=== PATIENT | female | born 1950 | race Caucasian/White ===

== ENCOUNTER 2016-10-26 07:50 | Observation (INO) | payer MEDICARE, OTHER ==
[~2016-10-26 07:50] MED LIST: Buffered Lidocaine 1% SYR 3ML* 3 ML/SYR SYRINGE INTRADERM ONE; Famotidine IV* 10 MG/ML 2 ML (20 mg) IV ONE; Morphine INJ* 2 MG/ML 1 ML CARPUJECT IV PRN; PROCHLORPERAZINE INJ 5 MG/ML 2 ML VIAL IV PRN
[2016-10-26] MEDS ORDERED: Famotidine IV* 10 MG/ML 2 ML (20 mg) ONE (08:26)
[2016-10-26] MEDS ORDERED: ceFAZolin 2 GM PREMIX (*) 2 GM/50 ML BAG IVPB ONE (08:26)
[2016-10-26] MEDS ORDERED: Buffered Lidocaine 1% SYR 3ML* 3 ML/SYR SYRINGE ONE (08:26)
[2016-10-26] MEDS ORDERED: Atracurium* 10 MG/ML 10 ML VIAL ONE (08:38)
[2016-10-26] MEDS ORDERED: fentaNYL* 50 MCG/ML 2 ML VIAL (100 MCG VIAL) ONE ×3 (08:38→12:47)
[2016-10-26] MEDS ORDERED: Midazolam* 1 MG/ML 5 ML VIAL (5 MG) ONE (08:39)
[2016-10-26] MEDS ORDERED: KETAMINE HCL* 50 MG/ML 10 ML VIAL ONE (08:39)
[2016-10-26] MEDS ORDERED: Lidocain 1% EPI 1:100,000 * 30 ML MDV ONE (09:03)
[2016-10-26] MEDS ORDERED: Bacitracin IV* 50,000 UNITS INJ ONE (09:03)
[2016-10-26] MEDS ORDERED: Thrombin 5,000 UNITS* 1 APPLIC KIT - topical use - TOPICAL ONE (09:03)
[2016-10-26] MEDS ORDERED: Morphine INJ* 10 MG/ML 1 ML CARPUJECT ONE (09:36)
[2016-10-26] MEDS ORDERED: Dexamethasone IV* 4 MG/ML 1 ML (4 MG) ONE (10:33)
[2016-10-26] MEDS ORDERED: Ondansetron INJ* 2 MG/ML VIAL ONE (10:33)
[2016-10-26] MEDS ORDERED: Phenylephrine IV* 40 MCG/ML 10 ML SYRINGE ONE (10:33)
[2016-10-26] MEDS ORDERED: Propofol* 10 MG/ML 20 ML BTL IV PUSH ONE (10:33)
[2016-10-26] MEDS ORDERED: Glycopyrrolate IV* 0.2 MG/ML 1 ML VIAL ONE (10:33)
[2016-10-26] MEDS ORDERED: Metoprolol Tartrate IV* 1 MG/ML 5 ML VIAL ONE (10:35)
[2016-10-26] MEDS ORDERED: Acetaminophen TAB* 325 MG PO PRN (10:36)
[2016-10-26] MEDS ORDERED: Ondansetron INJ* 2 MG/ML VIAL IV PRN (10:36)
[2016-10-26] MEDS ORDERED: Magnesium Hydroxide LIQ* 30 ML UDC PO PRN (10:36)
[2016-10-26] MEDS ORDERED: SINGULAIR PO PRN (10:40)
[2016-10-26] MEDS: fentaNYL* 50 MCG/ML 2 ML VIAL (100 MCG VIAL) IV PRN ×5 (11:16→12:49)
--- NOTE | 2016-10-26 11:39 | RAD ---
HISTORY: Decompressive lumbar laminectomy COMPARISONS: March 30, 2016 VIEWS: 1 , portable crosstable lateral intraoperative view of the lumbar spine for localization during spinal surgery FINDINGS: A single portable examination labeled 10:10 AM demonstrates a metallic forceps opposite of L4-L5, counting from L5 as the last lumbar type vertebral body. IMPRESSION: LIMITED PORTABLE VIEW OF THE SPINE FOR LOCALIZATION DURING SPINAL SURGERY
[2016-10-26] MEDS ORDERED: oxyCODONE/Acetamin 5/325 MG* TAB ONE ×2 (11:43→12:47)
[2016-10-26] MEDS: oxyCODONE/Acetamin 5/325 MG* TAB PO PRN ×2 (11:54→12:50)
[2016-10-26] MEDS: HYDROcodone/ACETAMIN 5-325 MG* 1 TAB PO PRN ×2 (16:25→20:27)
[2016-10-26] MEDS ORDERED: Ropinirole TAB* 0.5 MG TAB PO SCH (20:00)
[2016-10-26] MEDS: Carvedilol TAB* 25 MG PO SCH (20:26)
[2016-10-27] MEDS: HYDROcodone/ACETAMIN 5-325 MG* 1 TAB PO PRN ×3 (01:07→09:06)
[2016-10-27] MEDS ORDERED: Levothyroxine TAB* 100 MCG TAB PO SCH (06:00)
--- NOTE | 2016-10-27 07:57 | PN ---
Progress Note - Progress Note SOAP: Subjective: [This is a 66 year old patient s/p decompressive lumbar laminectomy L4-5 and L5- S1 POD #1. She is feeling well this morning. She complains of only mild pain at the incision site. Pre-operative symptoms improving. She is ambulating independently. She is eating, drinking and voiding without difficulty. No headache.] Objective: [ Vital Signs: Temp Pulse Resp BP Pulse Ox 98.2 F 68 16 102/54 95 10/27/16 03:33 10/27/16 03:33 10/27/16 05:38 10/27/16 04:15 10/27/16 03:33 General: Alert and oriented. Neuro: Motor and sensory intact. Incision: Intact with nellie. No swelling or signs of infection. SANTANA drain partially pulled out accidentally and therefore removed completely. Extremities: Full ROM] Assessment: [This patient is following a satisfactory post-operative course at this time. Pain is well controlled with oral pain medications. ] Plan: [1. Discharge home today. 2. Discharge instructions including wound care and activity level were discussed with the patient. ]
[2016-10-27 08:01] VITALS: BP 111/54
[2016-10-27] MEDS ORDERED: Cholecalciferol TAB* 1000 UNITS PO SCH (09:00)
[2016-10-27] MEDS ORDERED: Hydrochlorothiazide TAB* 25 MG PO SCH (09:00)
[2016-10-27] MEDS ORDERED: Sertraline* 50 MG TAB PO SCH (09:00)
[2016-10-27] MEDS ORDERED: Famotidine TAB* 20 MG PO SCH (09:00)
[2016-10-27] MEDS: Carvedilol TAB* 25 MG PO SCH (09:08)
--- NOTE | 2016-10-27 10:04 | OP ---
DATE OF OPERATION: 10/26/16 - ROOM #338 DATE OF : 52 SURGEON: Edgardo Samuel MD. CONTROL SUPERVISOR: BEE Cavazos. ANESTHESIOLOGIST: Dr. Moore. ANESTHESIA: General. PRE-OP DIAGNOSIS: Lumbar spinal stenosis, L4-5, L5-S1. POST-OP DIAGNOSIS: Lumbar spinal stenosis, L4-5, L5-S1; synovial cyst L4-5 on the left. OPERATIVE PROCEDURE: Decompressive lumbar laminectomy, L4-5, L5-S1 with excision of synovial cyst, L4-5, on the left. DESCRIPTION OF PROCEDURE: After satisfactory general anesthesia was obtained, the patient was placed on the operating table in the prone position with the chest supported on the Dimitris frame and the back slightly flexed. The lumbar region was then clipped, prepped, and draped in a sterile manner for lumbar laminectomy and a skin incision outlined from L4 to the sacrum. This incision was infiltrated with 1% Xylocaine with epinephrine, after which it was turned down sharply to the level of the lumbar fascia. The fascia was divided along the spinous processes from L4 to the sacrum and the paraspinal musculature stripped away from these posterior elements utilizing the periosteal elevator and monopolar cautery. An intraoperative x-ray was obtained verifying proper insufflation of localization after which a decompression was initially carried out by removing the spinous processes of L4-L5 and the upper portion of S1 with a combination of the Jarrell ribber and Leksell rongeurs. A Midas-Gilbert drill was then used to thin out the remaining portion of the base of the spinous process of L4 and the medial facet complex at the L4-5 level. A decompression was then carried out with Kerrison. This was carried superiorly until the attachment of the ligamentum flavum was taken down. A generous decompression was carried out initially on the right side until the L5 nerve root was noted to be free in its course. On the left side, there was noted to be adherent tissue between the facet complex and the dura. With additional dissection, it could be seen that this represented synovial cyst with marked compression on the left side of the left L5 nerve root. Utilizing sharp and blunt dissection, this was dissected free from the nerve root and removed with the Kerrison. At the conclusion of the decompression, a nerve hook out readily with both the L5 nerve roots. Attention was then directed to the L5-S1 level where a similar decompression was carried out. The pathology at this level was not as severe as L4-5, but there was foraminal stenosis especially on the left side from a combination of thickened ligament and bony hypertrophy. At the conclusion of the decompression, the wound was thoroughly irrigated, after which Gelfoam was placed over the laminectomy defects. A drain was placed in the epidural space and tunneled out toward the left side. The fascia was then reapproximated with 0 Vicryl suture. The subcutaneous tissue was closed with 3-0 Vicryl suture and the skin closed with skin clips. The estimated blood loss was 100 cc and the final sponge, padding, and needle counts were correct. The patient was taken to the recovery room, extubated, and in stable condition. [id number]/CPS #: [id number] PATRICIA
--- NOTE | 2016-10-27 23:15 | DS ---
DISCHARGE SUMMARY: DATE OF ADMISSION: 10/26/16 DATE OF DISCHARGE: 10/27/16 DISCHARGE DIAGNOSES: 1. Lumbar spinal stenosis. 2. Obstructive sleep apnea. 3. Hypothyroidism. 4. Hypertension. 5. Gastroesophageal reflux disease. 6. Hypercholesterolemia. SPECIAL PROCEDURES: Decompressive lumbar laminectomy at L4-L5 and L5-S1. HOSPITAL COURSE: This 66-year-old female was seen in the office with significant signs and symptoms of lumbar spinal stenosis. She failed to improve over several months of conservative treatment and was admitted at this time for elective surgical intervention. On the day of admission, she was taken to surgery where under general anesthesia, a decompressive lumbar laminectomy at L4-L5 and L5-S1 operation was carried out. Postoperatively, she was feeling well and pain was well controlled with oral pain medication. She was ambulating independently. She was eating, drinking, and voiding without difficulty. Preoperative pain was improving. On the first postoperative day, she was discharged home to the care of her family. Discharge instructions including wound care and activity level were discussed with the patient and provided. She will be seen in office in approximately 7-10 days for followup and staple removal. DISCHARGE MEDICATIONS: Roslyn 5/325 mg 2 tablets every 4 hours as needed for pain. BEE BOYD [id number]/[facility] #: [id number] PATRICIA
== END 2016-10-27 09:15 | disposition home or self-care (01) ==
LOC: OR 07:50 → SSU 10:36
PROVIDERS: ADMIT Neurological Surgery; ATTEND Neurological Surgery
PROC: 01NB0ZZ Release Lumbar Nerve, Open Approach (ICD-10-PCS; 2016-10-26)
PROC: 0SB20ZZ Excision of Lumbar Vertebral Disc, Open Approach (ICD-10-PCS; principal; 2016-10-26 09:30)
DX: M48.06 Spinal stenosis, lumbar region (principal); M48.07 Spinal stenosis, lumbosacral region; I10 Essential (primary) hypertension; E78.00 Pure hypercholesterolemia, unspecified; K21.9 Gastro-esophageal reflux disease without esophagitis; G47.33 Obstructive sleep apnea (adult) (pediatric); E03.9 Hypothyroidism, unspecified; Z79.899 Other long term (current) drug therapy
CPT/HCPCS: 72100; 96374; A9270-GY; G0378; J0690; J1100; J2250; J2270; J2405; J2704; J3010; J3490

== ENCOUNTER 2017-05-28 10:39 | Emergency (ER) | payer MEDICARE, OTHER ==
[2017-05-28 11:42] VITALS: BP 113/58
--- NOTE | 2017-05-28 12:04 | UC ---
Respiratory Complaint HPI - HPI Summary HPI Summary: 66 yo female with cough/sinus pressure and pain as well as nasal congestion x 8 days no f/c no CP or SOB - History of Current Complaint Chief Complaint: UCRespiratory Stated Complaint: COUGH/CONGESTION/HEADACHE Time Seen by Provider: 05/28/17 11:55 Hx Obtained From: Patient Onset/Duration: Gradual Onset Timing: Constant Severity Initially: Mild Severity Currently: Moderate Pain Intensity: 4 Pain Scale Used: 0-10 Numeric Character: Cough: Nonproductive Aggravating Factors: Nothing Alleviating Factors: Nothing Associated Signs And Symptoms: Positive: Nasal Congestion, Sinus Discomfort - Allergies/Home Medications Allergies/Adverse Reactions: Allergies Allergy/AdvReac Type Severity Reaction Status Date / Time No Known Allergies Allergy Verified 05/28/17 11:34 PMH/Surg Hx/FS Hx/Imm Hx Previously Healthy: Yes Endocrine History: Hypothyroidism Cardiovascular History: Hypertension Respiratory History: Bronchitis, Pneumonia - Surgical History Surgical History: Yes Surgery Procedure, Year, and Place: Cholecystectomy 2005 [facility] [place]. Breast reduction Bilateral 1998 [place]. Partial Hysterectomy 1979 [place] - Family History Known Family History: Positive: Hypertension - Social History Alcohol Use: Rare Substance Use Type: None Smoking Status (MU): Never Smoked Tobacco - Immunization History Most Recent Influenza Vaccination: 2016 Most Recent Tetanus Shot: unknown Most Recent Pneumonia Vaccination: in recent past Review of Systems Constitutional: Fatigue Skin: Negative Eyes: Negative ENT: Nasal Discharge, Sinus Congestion, Sinus Pain/Tenderness Respiratory: Cough Cardiovascular: Negative Gastrointestinal: Negative Genitourinary: Negative Motor: Negative Neurovascular: Negative Musculoskeletal: Negative Neurological: Negative Psychological: Negative All Other Systems Reviewed And Are Negative: Yes Physical Exam Triage Information Reviewed: Yes Appearance: Well-Appearing, No Pain Distress, Well-Nourished Vital Signs: Initial Vital Signs Temp 97.2 F 05/28/17 11:35 Pulse 74 05/28/17 11:35 Resp 18 05/28/17 11:35 BP 113/58 05/28/17 11:35 Pulse Ox 97 05/28/17 11:35 Vital Signs Reviewed: Yes Eyes: Positive: Conjunctiva Clear ENT: Positive: Hearing grossly normal, Nasal congestion, Nasal drainage, TMs normal, Other: - bilat mas sinus tenderness. Negative: Tonsillar exudate, Trismus, Muffled/hoarse voice Dental: Positive: Other: - upper plate. Negative: Abscess @ Neck: Positive: Supple, Nontender, No Lymphadenopathy Respiratory: Positive: Normal breath sounds, No respiratory distress, No accessory muscle use, Rhonchi - with forced expiration onluy Cardiovascular: Positive: RRR, No Murmur Musculoskeletal: Positive: ROM Intact, No Edema Neurological: Positive: Alert Psychological Exam: Normal Skin Exam: Normal UC Diagnostic Evaluation - Laboratory O2 Sat by Pulse Oximetry: 97 - normal/not hypoxic Respiratory Course/Dx - Differential Dx/Diagnosis Provider Diagnoses: acute sinusitis/acute bronchitis Discharge - Discharge Plan Condition: Stable Disposition: HOME Prescriptions: Azithromycin TAB* [Zithromax TAB*] 250 mg PO DAILY #6 tab Patient Education Materials: Sinusitis (ED), Acute Bronchitis (ED) Referrals: Naun Zelaya MD [Primary Care Provider] - 6 Days (if not improved)
== END 2017-05-28 12:17 | disposition home or self-care (01) ==
LOC: UCCORT 10:39
DX: J01.90 Acute sinusitis, unspecified (principal); J20.9 Acute bronchitis, unspecified; E03.9 Hypothyroidism, unspecified; I10 Essential (primary) hypertension; Z87.01 Personal history of pneumonia (recurrent)
CPT/HCPCS: 99212; G0463

== ENCOUNTER 2018-02-07 08:36 | Inpatient (IN) | payer MEDICARE, OTHER ==
[~2018-02-07 08:36] MED LIST changes: +Acetaminophen IV 1GM/100ML * 1,000 MG/100 ML VIAL IVPB ONE; +Buffered Lidocaine 0.9% SYRIN* 5 ML/SYR SYRINGE INTRADERM ONE; -Buffered Lidocaine 1% SYR 3ML* 3 ML/SYR SYRINGE INTRADERM ONE; +Dexamethasone IV* 4 MG/ML 1 ML (4 MG) IV SLOW PU ONE; -Famotidine IV* 10 MG/ML 2 ML (20 mg) IV ONE; +Famotidine TAB* 20 MG PO ONE; +Gabapentin CAP(*) 300 MG PO ONE; -Morphine INJ* 2 MG/ML 1 ML CARPUJECT IV PRN; -PROCHLORPERAZINE INJ 5 MG/ML 2 ML VIAL IV PRN; +celeCOXIB CAP* 200 MG PO ONE
--- OUTSIDE RECORDS SUMMARY | 2018-02-07 08:44 | XMS REPORT ---
:1950 External Reference #:[id number] Author Organization [facility] Address [address] [address] Phone [phone] Care Team Providers Name Role Phone Fady Milligan MD Primary Care Physician Unavailable Payers Type Date Identification Numbers Payment Provider Subscriber Medicare Primary Policy Number: [id number] Medicare Natalie Bandalister PayID: [id number] [address] [place] [address] Commercial Policy Number: [id number] Lifetime Benefit Solution Natalie Bandalister Group Number: [id number] [address] PayID: [place] [address] Problems Date Description Provider Status Onset: 10/17/2011 Periodic limb movement disorder Terrie Loo DNP, RN, Active DEVELOPMENT REPRESENTATIVE-BC Onset: 10/17/2011 Obstructive sleep apnea of adult Terrie Loo DNP, RN, Active DEVELOPMENT REPRESENTATIVE-BC Onset: 09/15/2016 Spinal stenosis of lumbar region Edgardo Samuel M.D. Active Onset: 01/04/2018 Localized, primary osteoarthritis Crystal Levin M.D. Active Family History Date Family Member(s) Problem(s) Comments General Arthritis General Arthritis, Osteo General Multiple Sclerosis (MS) Father Prostate Cancer Father Stroke Mother pneumonia mother at age 39 Social History Type Date Description Comments Marital Status Lives With Occupation Retired Occupation [employer] Cigarette Use Never Smoked Cigarettes ETOH Use Rarely consumes alcohol Smoking Patient has never smoked Recreational Drug Use Denies Drug Use Daily Caffeine Consumes on average 2 cups of regular coffee per day Exercise Type/Frequency Does not exercise Allergies, Adverse Reactions, Alerts Date Description Reaction Status Severity Comments 08/20/2014 NKDA active Medications Medication Date Status Form Strength Qnty SIG Indications Ordering Provider Famotidine 02/25/ Active Tablets 20mg take Unknown 2015 one tablet by mouth once a day prn Carvedilol / Active Tablets 25mg 180ta 1 by Unknown 0000 bs mouth twice a day Magnesium / Active Capsules 500mg 1 by Unknown 0000 mouth every day Multi For Her / Active Capsules 90cap 1 by Unknown 0000 s mouth every day Sertraline HCL / Active Tablets 50mg 90tab 1 by Unknown 0000 s mouth every day Singulair / Active Tablets 10mg 90tab 1 by Unknown 0000 s mouth every day prn Ibuprofen / Active Tablets 400mg 30tab by Unknown 0000 s mouth every 4 to 6 hours as needed Levothyroxine Sodium / Active Tablets 200mcg 90tab 1 by Unknown 0000 s mouth every day Hydrochlorothiazide / Active Tablets 25mg 1 by Unknown 0000 mouth every day Liothyronine Sodium / Active Unknown 0000 Bupropion HCL ER (XL) / Active Unknown 0000 Ropinirole HCL / Active Unknown 0000 Dextroamphetamine / Active Unknown Sulfate ER 0000 Medrol 10/29/ Hx TBPK 4mg 21uni take as Edgardo 2016 - quentin Samuel, 12/06/ d. M.DJayson 2016 D3-1000 05/25/ Hx Tablets 1000Unit 90tab take Sameer 2015 - s one Gucci, 01/27/ capsule M.DJayson 2018 /tablet daily by mouth Requip 02/25/ Hx 0.25mg take 4 Unknown 2015 - by 01/27/ mouth 2018 every night at h.s. Omeprazole / Hx Capsules 20mg 90cap 1 by Unknown 0000 - DR s mouth 02/25/ 2015 day Requip / Hx Tablets 0.5mg 90tab take 1 Unknown 0000 - s tab at 02/25/ night 2016 for rls Vitamin B-Complex 00// Hx Tablets 1 by Unknown 0000 - mouth 10/19/ every 2016 day Gabapentin / Hx Capsules 300mg 1 by Unknown 0000 - mouth 06/28/ two-thr 2016 ee times a day Vital Signs Date Vital Result Comment 01/27/2018 Height 60 inches 5'0" Weight 198.00 lb Heart Rate 96 /min BP Systolic 124 mmHg BP Diastolic 78 mmHg Respiratory Rate 14 /min Body Temperature 97.8 F Pain Level 2 BMI (Body Mass Index) 38.7 kg/m2 01/04/2018 Height 60 inches 5'0" Weight 206.00 lb Heart Rate 105 /min BP Systolic 140 mmHg BP Diastolic 82 mmHg Respiratory Rate 18 /min Body Temperature 98.0 F BMI (Body Mass Index) 40.2 kg/m2 06/29/2017 Height 59.5 inches 4'11.50" Weight 219.00 lb Heart Rate 64 /min BP Systolic Sitting 118 mmHg BP Diastolic Sitting 72 mmHg Respiratory Rate 14 /min O2 % BldC Oximetry 98 % BMI (Body Mass Index) 43.5 kg/m2 01/03/2017 Height 59.5 inches 4'11.50" Weight 219.00 lb Heart Rate 82 /min BP Systolic Sitting 122 mmHg BP Diastolic Sitting 70 mmHg Pain Level 0 BMI (Body Mass Index) 43.5 kg/m2 12/06/2016 Height 59.5 inches 4'11.50" Weight 219.00 lb Heart Rate 76 /min BP Systolic Sitting 150 mmHg BP Diastolic Sitting 90 mmHg Pain Level 0 BMI (Body Mass Index) 43.5 kg/m2 11/03/2016 Height 59.5 inches 4'11.50" Weight 219.00 lb Heart Rate 62 /min BP Systolic Sitting 142 mmHg BP Diastolic Sitting 90 mmHg Body Temperature 97.0 F Pain Level 6 BMI (Body Mass Index) 43.5 kg/m2 10/20/2016 Height 59.5 inches 4'11.50" Weight 219.00 lb Heart Rate 68 /min BP Systolic 124 mmHg BP Diastolic 68 mmHg BMI (Body Mass Index) 43.5 kg/m2 09/15/2016 Height 59.5 inches 4'11.50" Weight 219.00 lb Heart Rate 86 /min BP Systolic Sitting 130 mmHg lg BP Diastolic Sitting 78 mmHg lg Pain Level 4 BMI (Body Mass Index) 43.5 kg/m2 07/06/2016 Height 59.5 inches 4'11.50" Weight 215.50 lb Heart Rate 70 /min BP Systolic 132 mmHg BP Diastolic 90 mmHg Respiratory Rate 14 /min O2 % BldC Oximetry 96 % BMI (Body Mass Index) 42.8 kg/m2 05/25/2016 Height 59.5 inches 4'11.50" Weight 213.00 lb Heart Rate 76 /min BP Systolic Sitting 120 mmHg BP Diastolic Sitting 78 mmHg Body Temperature 98.3 F Pain Level 2 BMI (Body Mass Index) 42.3 kg/m2 05/25/2016 Height 59.5 inches 4'11.50" 05/04/2016 Height 59.5 inches 4'11.50" Weight 216.00 lb Heart Rate 84 /min BP Systolic Sitting 136 mmHg BP Diastolic Sitting 90 mmHg Body Temperature 99.0 F Pain Level 1 BMI (Body Mass Index) 42.9 kg/m2 02/27/2016 Height 60 inches 5'0" Weight 219.56 lb Heart Rate 82 /min BP Systolic Sitting 136 mmHg BP Diastolic Sitting 76 mmHg Respiratory Rate 14 /min O2 % BldC Oximetry 98 % BMI (Body Mass Index) 42.9 kg/m2 08/20/2014 Height 60 inches 5'0" Weight 200.00 lb Heart Rate 76 /min BP Systolic Sitting 136 mmHg left arm, large cuff BP Diastolic Sitting 74 mmHg left arm, large cuff Respiratory Rate 18 /min O2 % BldC Oximetry 96 % Room air BMI (Body Mass Index) 39.1 kg/m2 Results Test Date Test Result H/L Range Note Xray 01/04/2018 Knee 3 Views LT <pending> CBC No Diff 10/22/2016 White Blood Count 7.3 10^3/uL 3.5-10.8 Red Blood Count 4.88 10^6/uL 4.0-5.4 Hemoglobin 14.9 g/dL 12.0-16.0 Hematocrit 44 % 35-47 Mean Corpuscular Volume 91 fL 80-97 Mean Corpuscular Hemoglobin 31 pg 27-31 Mean Corpuscular HGB Conc 34 g/dL 31-36 Red Cell Distribution Width 14 % 10.5-15 Platelet Count 302 10^3/uL 150-450 Mean Platelet Volume 8 um3 7.4-10.4 Basic Metabolic Panel 10/22/2016 Sodium 139 mmol/L 133-145 Potassium 4.3 mmol/L 3.5-5.0 Chloride 98 mmol/L Low 101-111 Co2 Carbon Dioxide 32 mmol/L 22-32 Anion Gap 9 mmol/L 2-11 Glucose 111 mg/dL High 70-100 Blood Urea Nitrogen 19 mg/dL 6-24 Creatinine 0.97 mg/dL High 0.51-0.95 BUN/Creatinine Ratio 19.6 8-20 Calcium 9.9 mg/dL 8.6-10.3 Egfr Non- 57.6 >60 Egfr 74.1 >60 1 Laboratory test finding 05/06/2016 C Reactive Protein 1.76 mg/L < 5.00 2 Cyclic Citrullinated Pep Igg <15.6 U 3 Anti Nuclear Antibody 0.3 U 4 Rheumatoid Factor <15 IU/mL <15 5 Hla B27 05/06/2016 Hla B27 Negative 6 Hla B27 Interp See Comment 7 Vitamin D 1,25 And Vitamin 05/06/2016 Vitamin D Total 25(Oh) 24.7 ng/mL Low 30-50 8 D,2 Vitamin D, 1,25 Dihydroxy 70 pg/mL 18-78 9 Laboratory test finding 05/06/2016 Erythrocyte Sed Rate 17 mm/Hr 0-30 10 CBC Auto Diff 05/06/2016 White Blood Count 9.4 10^3/uL 3.5-10.8 Red Blood Count 4.41 10^6/uL 4.0-5.4 Hemoglobin 13.6 g/dL 12.0-16.0 Hematocrit 40 % 35-47 Mean Corpuscular Volume 90 fL 80-97 Mean Corpuscular Hemoglobin 31 pg 27-31 Mean Corpuscular HGB Conc 34 g/dL 31-36 Red Cell Distribution Width 15 % 10.5-15 Platelet Count 247 10^3/uL 150-450 Mean Platelet Volume 8 um3 7.4-10.4 Abs Neutrophils 6.7 10^3/uL 1.5-7.7 Abs Lymphocytes 1.8 10^3/uL 1.0-4.8 Abs Monocytes 0.8 10^3/uL 0-0.8 Abs Eosinophils 0.1 10^3/uL 0-0.6 Abs Basophils 0 10^3/uL 0-0.2 Abs Nucleated RBC 0 10^3/uL Granulocyte % 70.7 % 38-83 Lymphocyte % 19.5 % Low 25-47 Monocyte % 8.5 % 1-9 Eosinophil % 0.8 % 0-6 Basophil % 0.5 % 0-2 Nucleated Red Blood Cells % 0 Comp Metabolic Panel 05/06/2016 Sodium 140 mmol/L 133-145 Potassium 3.6 mmol/L 3.5-5.0 Chloride 100 mmol/L Low 101-111 Co2 Carbon Dioxide 31 mmol/L 22-32 Anion Gap 9 mmol/L 2-11 Glucose 75 mg/dL 70-100 Blood Urea Nitrogen 21 mg/dL 6-24 Creatinine 0.86 mg/dL 0.51-0.95 BUN/Creatinine Ratio 24.4 High 8-20 Calcium 9.5 mg/dL 8.6-10.3 Total Protein 6.4 g/dL 6.4-8.9 Albumin 4.0 g/dL 3.2-5.2 Globulin 2.4 g/dL 2-4 Albumin/Globulin Ratio 1.7 1-3 Total Bilirubin 0.50 mg/dL 0.2-1.0 Alkaline Phosphatase 62 U/L 34-104 Alt 41 U/L 7-52 Ast 24 U/L 13-39 Egfr Non- 66.4 >60 Egfr 85.4 >60 11 Laboratory test finding 05/06/2016 Creatine Kinase(CK) 63 U/L 10-223 12 Uric Acid 5.7 mg/dL 2.3-6.6 13 1 Because ethnic data is not always readily available, this report includes an eGFR for both -Americans and non- Americans. The National Kidney Disease Education Program (NKDEP) does not endorse the use of the MDRD equation for patients that are not between the ages of 18 and 70, are , have extremes of body size, muscle mass, or nutritional status, or are non- or non-. According to the National Kidney Foundation, irrespective of diagnosis, the stage of the disease is based on the level of kidney function: Stage Description GFR(mL/min/1.73 m(2)) 1 Kidney damage with normal or decreased GFR 90 2 Kidney damage with mild decrease in GFR 60-89 3 Moderate decrease in GFR 30-59 4 Severe decrease in GFR 15-29 5 Kidney failure <15 (or dialysis) 2 Acute inflammation: >10.00 3 REFERENCE VALUE <20.0 (Negative) Test Performed by: [address] [place] [address] Bark Press Operator: Shane Devlin II, M.D., Ph.D. 4 REFERENCE VALUE <=1.0 (Negative) Test Performed by: [place] [address] [employer] Operator: Shane Devlin II, M.D., Ph.D. 5 Test Performed by: [facility] [place] [address] [employer] Operator: Shane Devlin II, M.D., Ph.D. 6 REFERENCE VALUE Not Applicable 7 RESULT: HLA-B27 antigen was not detected. ADDITIONAL INFORMATION Method: Flow Cytometry Performing Laboratory CLIA# [id number] Test Performed by: [place] [address] [employer] Operator: Shane Devlin II, M.D., Ph.D. 8 Please check this week 9 Test Performed by: [place] [address] [employer] Press Operator: Shane Devlin II, M.D., Ph.D. 10 Please check this week 11 Because ethnic data is not always readily available, this report includes an eGFR for both -Americans and non- Americans. The National Kidney Disease Education Program (NKDEP) does not endorse the use of the MDRD equation for patients that are not between the ages of 18 and 70, are , have extremes of body size, muscle mass, or nutritional status, or are non- or non-. According to the National Kidney Foundation, irrespective of diagnosis, the stage of the disease is based on the level of kidney function: Stage Description GFR(mL/min/1.73 m(2)) 1 Kidney damage with normal or decreased GFR 90 2 Kidney damage with mild decrease in GFR 60-89 3 Moderate decrease in GFR 30-59 4 Severe decrease in GFR 15-29 5 Kidney failure <15 (or dialysis) 12 Please check this week 13 Please check this week Procedures Date CPT Code Description Status 10/26/2016 94240 Rondon/Facet/Foraminotomy;Ea Addl Segment; Cerv, Thora, Or Completed Lumbar 10/26/2016 25757 Rondon/Facet/Foraminotomy;Ea Addl Segment; Cerv, Thora, Or Completed Lumbar 10/26/2016 18090 Rondon/Facet/Foraminotomy;Vertebral Segment; Lumbar Completed 10/26/2016 00907 Rondon/Facet/Foraminotomy;Vertebral Segment; Lumbar Completed 07/27/2016 11806 Nerve Conduction 07-08 Studies Completed 07/27/2016 15650 Needle Electromyography Complete, Five Or More Muscles Completed Studied 02/15/2013 22582 Polysomnography Sleep Staging 4+ Parameters W/Cpap Completed 01/07/2013 76644 Polysomnography Sleep Staging 4+ Parameters Completed Encounters Type Date Location Provider CPT E/M Dx Office Visit 01/04/2018 [facility] Levin M.D. 92113 M17.12 8:00a [facility] M25.562 M25.462 Office Visit 06/29/2017 8:30a [place] [address] G47.33 [facility] E66.01 Office Visit 10/20/2016 2:15p Neurosurgery Services Edgardo Samuel M.D. 39913 M48.06 [facility] [place] Office Visit 09/15/2016 2:30p Neurosurgery Services Edgardo Samuel M.D. 83190 M48.06 [facility] Office Visit 07/06/2016 11:00a Pul[facility]ology And Sleep Terrie Loo 33887 G47.33 [facility] ALEJANDRO RN, DEVELOPMENT REPRESENTATIVE-BC G47.61 Office Visit 05/25/2016 9:40a Rheumatology Services Sameer Duckworth 47546 L40.50 Of Nena Byrne R20.8 R22.33 M25.60 Office Visit 05/04/2016 3:00p [facility] Of Sameer Duckworth, 87817 M06.4 [facility] Caty R20.8 L40.9 Office Visit 02/27/2016 9:00a [facility] Sleep Terrie Loo, 17643 G47.33 [facility] MARA ALLEN, DEVELOPMENT REPRESENTATIVE-BC G47.61 G25.81 Office Visit 08/20/2014 10:15a [facility] Sleep Terrie Loo, 26294 327.51 [facility] MARA ALLEN, DEVELOPMENT REPRESENTATIVE-BC 333.94 327.23 Office Visit 07/12/2013 11:58a [facility] Tono Coelho, 65384 327.23 M.DJayson 333.94 Office Visit 02/14/2013 10:00a [facility] Ivan Abril, 41613 726.12 C.M.Vinnie Byrne Office Visit 01/24/2013 3:42p Jebjustin Russ, 33960 327.23 Disorder Center Caty 327.51 Office Visit 12/05/2012 10:36a [facility] Jaciel Russ, 89417 786.09 Disorder Center MIsmael 333.94 Plan of Care Future Appointment(s):02/20/2018 10:45 am - Crystal Levin M.D. at [facility]02/07/2018 11:30 am - Albert Contreras PA-C at [facility]02/07/2018 11:30 am - BEE White at [facility]02/07/2018 11:30 am - Crystal Levin M.D. at [facility]06/30/2018 10:30 am - Ronda Navarro MD at [facility]01/27/2018 - Crystal Levin M.D.M17.12 Unilateral primary osteoarthritis, left kneeFollow up:Follow up: 2 weeks after [id number] Pain in left kneeM25.462 Effusion, left knee
[2018-02-07] MEDS ORDERED: Dexamethasone IV* 4 MG/ML 1 ML (4 MG) ONE (08:51)
[2018-02-07] MEDS ORDERED: Famotidine TAB* 20 MG ONE (08:51)
[2018-02-07] MEDS ORDERED: celeCOXIB CAP* 100 MG ONE (08:51)
[2018-02-07] MEDS ORDERED: Gabapentin CAP(*) 300 MG ONE (08:51)
[2018-02-07] MEDS ORDERED: Buffered Lidocaine 0.9% SYRIN* 5 ML/SYR SYRINGE ONE (08:52)
[2018-02-07] MEDS ORDERED: ceFAZolin 1 GM in Dextrose (*) 2 GM/100 ML BAG IVPB ONE (08:53)
[2018-02-07] MEDS ORDERED: Acetaminophen IV 1GM/100ML * 100 ML ONE (09:38)
[2018-02-07] MEDS ORDERED: Ondansetron INJ* 2 MG/ML VIAL ONE ×2 (10:04→15:20)
[2018-02-07] MEDS ORDERED: Bupivacaine 0.5% SDV PF* 10-30ML VIAL ONE (10:04)
[2018-02-07] MEDS ORDERED: Midazolam* 1 MG/ML 5 ML VIAL (5 MG) ONE (10:04)
[2018-02-07] MEDS ORDERED: Propofol* 10 MG/ML 20 ML BTL IV PUSH ONE (10:04)
[2018-02-07] MEDS ORDERED: fentaNYL* 50 MCG/ML 2 ML VIAL (100 MCG VIAL) ONE (10:04)
[2018-02-07] MEDS ORDERED: ROPIVACAINE 5 MG/ML 30 ML BTL (0.5%) ONE (10:04)
[2018-02-07] MEDS ORDERED: Bupivacaine 0.25% SDV* 30 ML ONE (10:47)
[2018-02-07] MEDS ORDERED: diPHENhydraMINE IV* 50 MG/ML 1 ml VIAL (BENADRYL) IV PRN (11:23)
[2018-02-07] MEDS ORDERED: Ondansetron TAB* 4 MG PO PRN (11:23)
[2018-02-07] MEDS ORDERED: Bisacodyl SUPP* 10 MG SUPP PR PRN (11:23)
[2018-02-07] MEDS ORDERED: oxyCODONE TAB* 5 MG TAB PO PRN (11:23)
[2018-02-07] MEDS ORDERED: Magnesium Hydroxide LIQ* 30 ML UDC PO PRN (11:23)
[2018-02-07] MEDS ORDERED: oxyCODONE/Acetamin 5/325 MG* TAB PO PRN (11:23)
[2018-02-07] MEDS ORDERED: Ondansetron INJ* 2 MG/ML VIAL IV PRN ×2 (11:23→12:04)
[2018-02-07] MEDS ORDERED: Polyethylene Glycol 3350* 17 GM PACKET PO PRN (11:23)
[2018-02-07] MEDS ORDERED: Cetirizine* 10 MG TAB PO PRN (11:28)
[2018-02-07] MEDS ORDERED: DiMENhydriNATE IV* 50 MG/ML VIAL IV PUSH PRN (12:04)
[2018-02-07] MEDS ORDERED: fentaNYL* 50 MCG/ML 2 ML VIAL (100 MCG VIAL) IV PRN (12:04)
[2018-02-07] MEDS ORDERED: HYDROmorphone INJ* 1 MG/ML CARPUJECT SYRINGE IV PRN (12:04)
[2018-02-07] MEDS ORDERED: Naloxone* 0.4 MG/ML 1 ML VIAL IV PRN (12:04)
--- NOTE | 2018-02-07 14:35 | RAD ---
HISTORY: Status post left knee arthroplasty COMPARISONS: January 04, 2013 VIEWS: 2, Frontal and lateral views of the left knee FINDINGS: BONE DENSITY: Normal. BONES: The patient is status post left knee arthroplasty. There is no hardware failure or osteolysis. JOINTS: The patient is status post left knee arthroplasty. ALIGNMENT: There is no dislocation. SOFT TISSUES: There is post surgical change to the soft tissues. OTHER FINDINGS: None. IMPRESSION: STATUS POST LEFT KNEE ARTHROPLASTY.
[2018-02-07] MEDS ORDERED: Hydrochlorothiazide TAB* 25 MG PO ONE (16:03)
--- NOTE | 2018-02-07 16:58 | CONS ---
CC: Dr. Crystal Levin; Dr. Gertrudis Regan* CONSULTATION REPORT: DATE OF CONSULT: 02/07/18 REQUESTING PROVIDER: Dr. Crystal Levin. MY ATTENDING WHILE IN THE HOSPITAL: Dr. Gertrudis Regan. REASON FOR CONSULT: Co-management of comorbid medical conditions. HISTORY OF PRESENT ILLNESS: Ms. Sun is a 67-year-old female with past medical history significant for hypertension and obstructive sleep apnea, who was admitted to the hospital for a left total knee replacement with Orthopedics. The patient was examined in the postanesthesia care unit. The patient has no complaints. The patient rates her pain level is 0. The patient denies chest pain, shortness of breath, dizziness, palpitations, nausea, or vomiting. The patient has had no recent illnesses. The patient had spinal anesthesia with EBL of 250. The patient has no functional deficits at her baseline. The patient has had no previous issues with numerous surgeries. The patient was cleared by her primary care provider before undergoing surgery. The patient brought her CPAP from home, which she uses regularly. The patient had no exposure to anybody with the flu. No recent increased shortness of breath or swelling in her legs. The patient took her carvedilol this morning and held her hydrochlorothiazide. PAST MEDICAL HISTORY: Hypertension, obstructive sleep apnea, obesity, restless legs syndrome, hypothyroidism, GERD, neuropathy of the left wrist, spinal stenosis. PAST SURGICAL HISTORY: Laparoscopic cholecystectomy in 2005, diskectomy in October 2016, hysterectomy in 1979, breast reduction in 1999. MEDICATIONS: On admission: 1. Carvedilol 25 mg p.o. b.i.d. 2. Cetirizine 10 mg p.o. daily. 3. Famotidine 20 mg p.o. twice daily. 4. Hydrochlorothiazide 25 mg p.o. daily. 5. Ibuprofen 400 mg q.6 hours as needed for pain. 6. Levothyroxine 200 mcg p.o. daily. 7. Magnesium 500 mg oral daily. 8. Multivitamin. 9. Ropinirole 1 mg 2 to 3 tabs twice daily. 10. Sertraline 50 mg p.o. daily. ALLERGIES: No known drug allergies. FAMILY HISTORY: The patient's father had prostate cancer and stroke. The patient's mother of pneumonia. The patient has a sister with multiple sclerosis and brother with hypertension and sister with hypothyroidism, and a daughter who had stroke related to control. SOCIAL HISTORY: The patient has never smoked. The patient drinks approximately 3 times a year. The patient denies illicit drug use. The patient is . The patient lives in [place] with 5 grown children. 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 The patient's surrogate decision maker is her , Varghese Sun, or her daughter, Funmilayo. REVIEW OF SYSTEMS: A 14-point review of systems was reviewed and is negative except as above. PHYSICAL EXAM: General: The patient is a 67-year-old female, who appears stated age and sitting comfortably in bed, in no acute distress. Vital Signs: At the time of examination, temperature 97.3, pulse rate 87, respiratory rate 18 , oxygen saturation 97% on 3 L, blood pressure 127/93. HEENT: Head, normocephalic, atraumatic. Sclerae anicteric. No conjunctival injection. Nasal mucosa moist. Oral mucosa moist. No pharyngeal erythema, discharge, or exudate. Neck: Supple, nontender. No lymphadenopathy. No carotid bruits auscultated. Cardiac: Regular rate and rhythm. No clicks, murmurs, gallops, or rubs. Pulses are 2+ in the bilateral dorsalis pedis, posterior tibialis, and radial areas. No bilateral calf tenderness. Respiratory: Clear to auscultation bilaterally. No wheezes, rales, or rhonchi. Good air exchange bilaterally. Abdomen: Soft, nontender, nondistended. Bowel sounds present and normoactive in all 4 quadrants. No hepatosplenomegaly. No abdominal bruits auscultated. Skin: Clean, dry, and intact. Left knee incision is covered with bulky dressing. No rashes. Neuro: Cranial nerves II through XII intact. The patient cannot feel her lower extremities due to spinal nerve block. Strength preserved in bilateral upper extremities. The patient is able to move both of her bilateral lower extremities. Alert and oriented x3. No focal deficits. Psychiatric: Pleasant and cooperative. LABORATORY DATA: Preoperatively, hemoglobin 15.2, hematocrit 44, and platelet count 277. INR 0.96, aPTT 30.6. Chemistry: Sodium 140, potassium 3.6, anion gap 10, BUN 17, creatinine 1.03, glucose 104, calcium 9.8. Bilirubin 0.6, AST 23, ALT 30, alkaline phosphatase 67. Total protein 6.8, albumin 4.3, globulin 2.5. ASSESSMENT AND PLAN: Ms. Sun is a 67-year-old female with past medical history significant for hypertension and obstructive sleep apnea, who is status post left total knee replacement today and has had no complications. 1. Status post left total knee replacement. The patient underwent left total knee replacement today with Orthopedics with no intraoperative complications. Minimal blood loss, spinal anesthesia. The patient's blood pressure is currently normal. Pain control by regimen per primary team. PT and OT. Early mobilization recommended. 2. Hypertension. Continue the patient's carvedilol. Perioperatively, the patient did not take her hydrochlorothiazide this morning and will be held for tomorrow morning. The patient's blood pressure will be monitored and her hydrochlorothiazide will be restarted when able. 3. Obstructive sleep apnea. The patient will use her home CPAP in the hospital. 4. Restless legs syndrome. Continue the patient's ropinirole. 5. Hypothyroidism. Continue levothyroxine. 6. Gastroesophageal reflux disease. Continue famotidine. 7. FEN. The patient will have fluids of 75 mL an hour. The patient will have her diet advanced as tolerated. 8. DVT prophylaxis. Lovenox to warfarin per Orthopedics. 9. Code status. The patient would like to be a full code. The patient's surrogate decision makers are her , Varghese, or her daughter, Funmilayo. 10. Disposition. Per primary team, the patient is inpatient. TIME SPENT: Approximately 60 minutes was spent on this consultation, 30 of which was spent [id number] with the patient obtaining history and physical and discussing the treatment plan. This plan has been discussed with my attending, Dr. Gertrudis Regan, and she is in agreement. BEE REDDY [id number]/[facility]PS #: [id number] MTDD
[2018-02-07] MEDS ORDERED: Warfarin TAB(*) 6 MG PO ONE (17:00)
[2018-02-07] MEDS: Magnesium Oxide TAB* 400 MG PO SCH (17:35)
[2018-02-07] MEDS: Morphine VIAL* 4 MG/ML VIAL (1 ml vial) IV PRN (18:37)
[2018-02-07] MEDS: rOPINIRole TAB* 1 MG PO SCH (18:42)
[2018-02-07] MEDS: Cyclobenzaprine TAB* 10 MG PO PRN (18:43)
[2018-02-07] MEDS: oxyCODONE/Acetamin 5/325 MG* TAB PO PRN ×2 (19:38→23:51)
[2018-02-07] MEDS: ceFAZolin 1 GM in Dextrose (*) 1 GM/50 ML BAG IVPB SCH (19:39)
[2018-02-07] MEDS: Carvedilol TAB* 25 MG PO SCH (19:50)
[2018-02-07] MEDS: Magnesium Hydroxide LIQ* 30 ML UDC PO SCH (19:50)
[2018-02-07] MEDS: Docusate CAP* 100 MG PO SCH (19:50)
[2018-02-08] MEDS: ceFAZolin 1 GM in Dextrose (*) 1 GM/50 ML BAG IVPB SCH ×2 (04:27→11:35)
[2018-02-08] MEDS: Liothyronine TAB* 25 MCG PO SCH (06:12)
[2018-02-08] MEDS: Levothyroxine TAB* 100 MCG TAB PO SCH (06:12)
[2018-02-08] MEDS: Cyclobenzaprine TAB* 10 MG PO PRN ×3 (06:12→20:09)
[2018-02-08 06:16] LABS: Hematocrit 34 % (35-47); Hemoglobin 11.5 g/dl (12.0-16.0); Mean Platelet Volume 6.9 um3 (7.4-10.4); Platelet Count 212 10^3/ul (150-450)
[2018-02-08 06:22] LABS: INR 1.1 (0.77-1.02)
[2018-02-08 06:31] LABS: EGFR Non-African American 58.9 (>60)
[2018-02-08] MEDS: DEXTROAMPHETAMINE SULFATE 15 MG PO SCH ×2 (08:40→20:18)
[2018-02-08] MEDS: Hydrochlorothiazide TAB* 25 MG PO SCH (08:41)
[2018-02-08] MEDS: Famotidine TAB* 20 MG PO SCH (08:42)
[2018-02-08] MEDS: Magnesium Hydroxide LIQ* 30 ML UDC PO SCH ×2 (08:42→20:09)
[2018-02-08] MEDS: Docusate CAP* 100 MG PO SCH ×2 (08:43→20:09)
[2018-02-08] MEDS: BuPROPion XL* 300 MG TAB.XL PO SCH (08:43)
[2018-02-08] MEDS: Carvedilol TAB* 25 MG PO SCH ×2 (08:43→20:09)
[2018-02-08] MEDS ORDERED: Hydrochlorothiazide TAB* 25 MG PO SCH (09:00)
--- NOTE | 2018-02-08 09:56 | PN ---
Progress Note - Progress Note Date of Service: 02/08/18 SOAP: Subjective: []Patient seen at bedside. She is feeling well without knee pain, leg numbness, chest pain, shortness of breath, dizziness, nausea. Objective: [] Vital Signs Temp 97.6 F 02/08/18 07:35 Pulse 86 02/08/18 08:39 Resp 18 02/08/18 08:40 BP 105/58 02/08/18 08:39 Pulse Ox 98 02/08/18 08:00 Intake & Output 02/07/18 02/08/18 02/08/18 18:59 06:59 18:59 Intake Total 2820 1200 Output Total 1400 2050 Balance 1420 -850 Weight 198 lb Intake: IV Fluids 2300 50 ABX - CEFAZOLIN 50 LR 2250 NS 100ML, Cefazolin 2G 50 Oral 520 1150 Output: Urine 0 Guillen 1150 2050 Estimated Blood Loss 250 Laboratory Last Values Hgb 11.5 g/dl (12.0-16.0) L 02/08/18 06:05 Hct 34 % (35-47) L 02/08/18 06:05 Plt Count 212 10^3/ul (150-450) 02/08/18 06:05 MPV 6.9 um3 (7.4-10.4) L 02/08/18 06:05 INR (Anticoag Therapy) 1.10 (0.77-1.02) H 02/08/18 06:05 Sodium 140 mmol/L (139-145) 02/08/18 06:05 Potassium 4.0 mmol/L (3.5-5.0) 02/08/18 06:05 Chloride 103 mmol/L (101-111) 02/08/18 06:05 Carbon Dioxide 33 mmol/L (22-32) H 02/08/18 06:05 Anion Gap 4 mmol/L (2-11) 02/08/18 06:05 BUN 14 mg/dL (6-24) 02/08/18 06:05 Creatinine 0.95 mg/dL (0.51-0.95) 02/08/18 06:05 Est GFR ( Amer) 75.7 (>60) 02/08/18 06:05 Est GFR (Non-Af Amer) 58.9 (>60) 02/08/18 06:05 BUN/Creatinine Ratio 14.7 (8-20) 02/08/18 06:05 Glucose 125 mg/dL (70-100) H 02/08/18 06:05 Calcium 8.8 mg/dL (8.6-10.3) 02/08/18 06:05 General: Well appearing, NAD RLE: Dressing CDI without surrounding erythema. DF/PF intact. Sensation intact distally. DP 2+ BL LE: Calves supple and nontender without erythema, edema or palpable cords. Assessment: []POD 1 s/p left total knee arthroplasty 02/[address] Levin Plan: []WBAT PT/OT lovenox, coumadin 4 mg
[2018-02-08] MEDS ORDERED: HYDROcodone/ACETAMIN 5-325 MG* 1 TAB PO PRN (10:09)
--- NOTE | 2018-02-08 10:59 | OP ---
OPERATIVE REPORT: DATE OF OPERATION: 02/07/18 - Inpatient, room SSU 341-01 DATE OF : 52 SURGEON: Crystal Levin MD CHARGING MACHINE OPERATOR: BEE Drummond MsJayson Azul did help throughout the procedure with preparation of the leg, wound retraction, manipulation of the knee, and wound closure. ANESTHESIOLOGIST: Sameer Meng MD. ANESTHESIA: Spinal. PRE-OP DIAGNOSIS: Severe end-stage degenerative osteoarthritis of the left knee joint. POST-OP DIAGNOSIS: Severe end-stage degenerative osteoarthritis of the left knee joint. OPERATIVE PROCEDURE: Left total knee arthroplasty. INDICATIONS: Ms. Sun is a 67-year-old female with years of increasingly severe knee pain. Radiographs showed [id number] arthritis. She failed conservative treatment with the antiinflammatories, pain medication, intraarticular injections, and physical therapy. Due to continued pain and decreased quality of life, she elected to undergo a left total knee arthroplasty. Informed consent was obtained from the patient. She understood the risks of surgery included but were not limited to bleeding, infection, damage to nearby structures, continued pain, need for further surgery, intraoperative fracture, nerve palsy, hardware failure or loosening, knee stiffness, loss of motion, stroke, heart attack, blood clot, and . She wished to proceed. TOURNIQUET TIME: 49 minutes. COMPLICATIONS: None. ESTIMATED BLOOD LOSS: 250 cc. SPECIMEN: Bone and cartilage sent to Pathology. HARDWARE USED: This is uncemented Lan [employer] Nephew total knee arthroplasty hardware. Two packages of Simplex bone cement. For the femur, a left size 3 narrow posterior stabilized Oxinium femoral component. For the tibia, a size 2 left Kristin II tibial baseplate. For the insert, a 9-mm posterior stabilized Kristin II size 1/2. For the patella, a 29-mm 3-peg all poly patella with 7.5 thickness. INTRAOPERATIVE FINDINGS: Intraoperatively, the patient was noted to have tricompartmental severe arthritis. There was full-thickness loss of cartilage in the medial and patellofemoral compartment. DESCRIPTION OF PROCEDURE: Ms. Sun was identified in the preanesthesia unit. Her left lower extremity was marked as the correct operative site. Informed consent was signed and placed in the chart. The patient was taken to the operating room and placed under spinal anesthesia. A Guillen catheter was placed. Tourniquet was placed on the left thigh. Left lower extremity was prepped and draped in the usual sterile fashion. Preop time-out was made to correctly identify the patient, side, and site. Appropriate perioperative antibiotics were given within 1 hour of incision. Tourniquet was inflated and total tourniquet time for this procedure was 49 minutes. A 12-cm midline incision was made with a 10-blade and carried down to the extensor mechanism. New 10 blade was used to make a standard medial parapatellar arthrotomy. Patella was subluxed laterally. Electrocautery was used to subperiosteally elevate the soft tissue off the superomedial tibia to the mid sagittal plane. The knee was flexed up. Anterior horn of the lateral meniscus and ACL were sharply released. A drill was used to enter the distal femur. Intramedullary distal femoral cutting guide was pinned on the distal femur. Oscillating saw was used to make the appropriate distal femoral cut. Next, the external rotation guide was pinned on the distal femur. The distal femur was sized to a size 3. Size 3 cutting block was pinned on the distal femur. Oscillating saw was used to make the appropriate 4-chamfer cuts. The PCL was completely released. Tibia was subluxed anteriorly. Extramedullary tibial cutting jig was pinned on the proximal tibia. Oscillating saw was used to make the proximal tibial cut perpendicular to the mechanical axis of the tibia. The bone was removed. The knee was brought out into full extension. Medial and lateral ligaments were well balanced. Flexion and extension gap was well balanced. The knee was flexed up. Lamina flight security specialist was placed both medially and laterally. Any remaining meniscus was carefully removed using electrocautery. Curved osteotome was used to remove any posterior osteophytes. Tibial tray and drop samson were placed to once again confirm satisfactory proximal tibial cut. This was confirmed. A left size 3 narrow femoral component was impacted on to the distal femur and had excellent fit. The box for the posterior stabilized implant was prepared using a reamer and box cut osteotome. Size 2 tibial tray with a 9-mm insert trial was placed. The knee was taken through range of motion. The knee had full extension to 130 degrees of flexion with satisfactory patellofemoral tracking. The patella was everted. 7 mm of patellar bone and cartilage was carefully removed using an oscillating saw. The patella was sized to a 29. Three peg holes were drilled in the patella. A 29 trial with 7.5 thickness was placed and the knee was taken through range of motion. There was satisfactory patellofemoral tracking. All trials were carefully removed. The tibia was subluxed anteriorly and sized to a size 2. Proximal tibia was prepared using a size 2 keel punch. All bony cut surfaces were copiously irrigated with sterile saline and dried. Final implants were cemented into place starting with the tibia followed by the femur and lastly the patella. A 9-mm insert trial was placed and the knee was brought out into full extension. Tourniquet was turned down at 49 minutes. Electrocautery was used to obtain meticulous hemostasis. The knee was copiously irrigated with sterile saline. Once the cement had fully cured, the insert trial was removed. Any excess cement was removed from around the capsule and hardware. Final insert chosen was a 9-mm posterior stabilized articular insert, size 1/2. This was left into position on the tibial tray. Stability of the insert was checked and rechecked and noted to be stable. Knee was copiously irrigated with sterile saline once again. The extensor mechanism was closed using interrupted #1 Vicryls. The rest of the incision was closed in a layered fashion using 0 and 2-0 Vicryls. Skin was closed using running 3-0 nylon suture. Sterile Xeroform, 4x4s, and Webril were used to cover the incision. Rodriguez wrap and cold pack were placed over this. The patient' s anesthesia was reversed without difficulty. She was taken to the PACU in stable condition. Intended weightbearing will be weightbearing as tolerated. Intended DVT prophylaxis will be Coumadin with a Lovenox bridge. [id number]/[facility] #: [id number] [facility]
--- NOTE | 2018-02-08 11:27 | PN ---
Subjective Date of Service: 02/08/18 Interval History: Patient doing well, pain 2/10 at rest, pain 6/10 with moderate activity, able to walk out to [place] with PT. Feels sedated from oxycodone, previously had this reaction. Is urinating, no flatus or BM. No Dizziness, palpitations, SOB, CP. One episode of nausea. No abdominal pain, F/C or other pain. Family History: Unchanged from Admission Social History: Unchanged from Admission Past Medical History: Unchanged from Admission Objective Active Medications: Acetaminophen (Tylenol Tab*) 650 mg PO Q4H PRN PRN Reason: PAIN OR TEMPERATURE Hydrocodone Bitart/Acetaminophen ([place] 5-325 Tab*) 1 tab PO Q4H PRN PRN Reason: PAIN - MILD TO MODERATE Hydrocodone Bitart/Acetaminophen ([place] 5-325 Tab*) 2 tab PO Q4H PRN PRN Reason: PAIN - MODERATE TO SEVERE Bisacodyl (Dulcolax Supp*) 10 mg [place] DAILY PRN PRN Reason: constipation Bupropion HCl ([facility]ion Xl*) [facility] Admin: 02/08/18 08:43 Dose: 300 mg Carvedilol (Coreg Tab*) 25 mg PO BID [facility] Last Admin: 02/08/18 08:43 Dose: 25 mg Cetirizine HCl (Zyrtec*) 10 mg PO ONCE PRN; Protocol PRN Reason: ALLERGIES Cyclobenzaprine HCl (Flexeril Tab*) 10 mg PO TID PRN PRN Reason: SPASMS Last Admin: 02/08/18 06:12 Dose: 10 mg Diphenhydramine HCl (Benadryl Iv*) 12.5 mg IV Q6H PRN PRN Reason: PRURITIS Docusate Sodium (Colace Cap*) 100 mg PO BID [facility] Last Admin: 02/08/18 08:43 Dose: 100 mg Enoxaparin Sodium (Lovenox(*)) 30 mg SUBCUT Q24H [facility] Famotidine (Pepcid Tab*) 20 mg PO QAM [facility] Last Admin: 02/08/18 08:42 Dose: 20 mg Hydrochlorothiazide (Hydrodiuril Tab*) 25 mg PO DAILY [facility] Last Admin: 02/08/18 08:41 Dose: Not Given Cefazolin Sodium/Dextrose (Kefzol 1 Gm In Dextrose Duplex (*)) 1 gm in 50 mls @ 200 mls/hr IVPB Q8H [facility] Stop: 02/08/18 12:14 Last Admin: 02/08/18 04:27 Dose: 200 mls/hr Lactated Ringer's (Lactated Ringers 1000 Ml Bag*) 1,000 mls @ 100 mls/hr IV PER RATE [facility] Last Admin: 02/08/18 06:15 Dose: 100 mls/hr Lactulose (Lactulose*) 30 ml PO Q6H PRN PRN Reason: constipation Levothyroxine Sodium (Synthroid Tab*) 200 mcg PO DAILY@0600 [facility] Last Admin: 02/08/18 06:12 Dose: 200 mcg Liothyronine Sodium (Cytomel Tab*) 25 mcg PO DAILY@0600 [facility] Last Admin: 02/08/18 06:12 Dose: 25 mcg Magnesium Hydroxide (Milk Of Magnesia Liq*) 30 ml PO BID [facility] Last Admin: 02/08/18 08:42 Dose: 30 ml Magnesium Hydroxide (Milk Of Magnesia Liq*) 30 ml PO Q6H PRN PRN Reason: constipation Magnesium Oxide (Magox 400 Tab*) 400 mg PO QPM [facility] Last Admin: 02/07/18 17:35 Dose: 400 mg Morphine Sulfate (Morphine Vial*) 2 mg IV Q2H PRN PRN Reason: PAIN Last Admin: 02/07/18 18:37 Dose: 2 mg Dextroamphetamine Sulfate [Zenzedi] 15 Mg) 15 mg PO BID [facility] Last Admin: 02/08/18 08:40 Dose: Not Given Ondansetron HCl (Zofran Inj*) 4 mg IV Q6H PRN PRN Reason: nausea Ondansetron HCl (Zofran Tab*) 4 mg PO Q6H PRN PRN Reason: NAUSEA Pharmacy Profile Note (Coumadin Daily Reminder*) 1 note FOLLOW UP 1700 [facility] Last Admin: 02/07/18 17:37 Dose: 1 note Polyethylene Glycol/Electrolytes (Miralax*) 17 gm PO DAILY PRN PRN Reason: Constipation Ropinirole HCl (Requip Tab*) 3 mg PO QPM [facility] Last Admin: 02/07/18 18:42 Dose: 3 mg Warfarin Sodium (Coumadin Tab(*)) 4 mg PO ONCE@1700 ONE PRN Reason: Protocol Stop: 02/08/18 17:01 Vital Signs - 8 hr 02/08/18 02/08/18 02/08/18 04:24 04:26 06:12 Temperature 97.5 F Pulse Rate 88 Respiratory 16 16 16 Rate Blood Pressure 111/62 (mmHg) O2 Sat by Pulse 98 Oximetry 02/08/18 02/08/18 02/08/18 07:04 07:21 07:35 Temperature 97.6 F Pulse Rate 85 Respiratory 16 18 16 Rate Blood Pressure 105/60 (mmHg) O2 Sat by Pulse 98 Oximetry 02/08/18 02/08/18 02/08/18 08:00 08:39 08:40 Temperature Pulse Rate 86 Respiratory 16 18 Rate Blood Pressure 105/58 (mmHg) O2 Sat by Pulse 98 Oximetry 02/08/18 10:18 Temperature Pulse Rate Respiratory 18 Rate Blood Pressure (mmHg) O2 Sat by Pulse Oximetry Oxygen Devices in Use Now: None Appearance: Patient is a 67yo female who appears stated age and is sitting in the chair in NAD. Eyes: No Scleral Icterus, PERRLA Ears/Nose/Mouth/Throat: NL Teeth, Lips, Gums, Clear Oropharnyx, Mucous Membranes Moist Neck: NL Appearance and Movements; NL JVP, Trachea Midline Respiratory: Symmetrical Chest Expansion and Respiratory Effort, Clear to Auscultation Cardiovascular: NL Sounds; No Murmurs; No JVD, RRR, No Edema Abdominal: NL Sounds; No Tenderness; No Distention, No Hepatosplenomegaly Lymphatic: No Cervical Adenopathy Extremities: No Edema, No Clubbing, Cyanosis Skin: No Nodules or Sclerosis, - - Left knee covered in bulky dressing with cold pack. Neurological: Alert and Oriented x 3, NL Sensation, NL Muscle Strength and Tone , - - CN II-XII intact. Result Diagrams: 02/08/18 06:05 02/08/18 06:05 Assess/Plan/Problems-Billing Assessment: Patient is a 67yo female with a PMH significant for HTN, JOSE DE JESUS who is S/P LTKA and is doing well. - Patient Problems (1) Post-operative state Current Visit: Yes Status: Acute Code(s): Z98.890 - OTHER SPECIFIED POSTPROCEDURAL STATES SNOMED Code(s): 55672988 Comment: S/P LTKA. Management per primary team. Urinated, No BM, H/H decreased but not significantly anemic. Switched to [place] for pain control due to reaction to oxycodone. PT/OT. Bowel Regimen. (2) HTN (hypertension) Current Visit: Yes Status: Acute Code(s): I10 - ESSENTIAL (PRIMARY) HYPERTENSION SNOMED Code(s): 18398285 Comment: Normotensive. No orthostasis. Continue HCTZ and Carvedilol. (3) JOSE DE JESUS (obstructive sleep apnea) Current Visit: Yes Status: Acute Code(s): G47.33 - OBSTRUCTIVE SLEEP APNEA ( ADULT) (PEDIATRIC) SNOMED Code(s): 78370624 Comment: Continue home CPAP. (4) DVT prophylaxis Current Visit: Yes Status: Acute Code(s): NOH7626 - SNOMED Code(s): 600487620 Comment: Lovenox to Warfarin per primary team. (5) Full code status Current Visit: Yes Status: Acute Code(s): Z78.9 - OTHER SPECIFIED HEALTH STATUS SNOMED Code(s): 528041867 Status and Disposition: Disposition per Orthopedics. Will sign off, thank you for this consult. Do not hesitate to call with questions.
[2018-02-08] MEDS: Enoxaparin(*) 30 MG/0.3 ML SYR SUBCUT SCH (11:36)
[2018-02-08] MEDS: HYDROcodone/ACETAMIN 5-325 MG* 1 TAB PO PRN ×3 (12:49→21:09)
[2018-02-08] MEDS: Morphine VIAL* 4 MG/ML VIAL (1 ml vial) IV PRN ×2 (16:20→20:10)
[2018-02-08] MEDS ORDERED: Warfarin TAB(*) 4 MG PO ONE (17:00)
[2018-02-08] MEDS: Magnesium Oxide TAB* 400 MG PO SCH (17:09)
[2018-02-08] MEDS: rOPINIRole TAB* 1 MG PO SCH (17:09)
[2018-02-08] MEDS ORDERED: Morphine TAB Extended Release (*) 30 MG TAB.ER PO SCH (18:00)
[2018-02-08] MEDS: Ketorolac INJ* 30 MG/ML 1 ML VIAL IV PUSH PRN (18:10)
[2018-02-08] MEDS: Morphine TAB Extended Release (*) 15 MG TAB.ER PO SCH (18:17)
[2018-02-09 05:59] LABS: Hematocrit 34 % (35-47); Hemoglobin 11.5 g/dl (12.0-16.0); Platelet Count 206 10^3/ul (150-450)
[2018-02-09] MEDS: Levothyroxine TAB* 100 MCG TAB PO SCH (05:59)
[2018-02-09] MEDS: Morphine TAB Extended Release (*) 15 MG TAB.ER PO SCH (06:00)
[2018-02-09] MEDS: HYDROcodone/ACETAMIN 5-325 MG* 1 TAB PO PRN ×2 (06:00→09:56)
[2018-02-09] MEDS: Liothyronine TAB* 25 MCG PO SCH (06:00)
[2018-02-09 06:29] LABS: INR 1.33 (0.77-1.02)
[2018-02-09] MEDS: Ketorolac INJ* 30 MG/ML 1 ML VIAL IV PUSH PRN (07:50)
[2018-02-09] MEDS: Magnesium Hydroxide LIQ* 30 ML UDC PO SCH ×2 (08:55→21:34)
[2018-02-09] MEDS: Hydrochlorothiazide TAB* 25 MG PO SCH (08:55)
[2018-02-09] MEDS: Famotidine TAB* 20 MG PO SCH (08:55)
[2018-02-09] MEDS: DEXTROAMPHETAMINE SULFATE 15 MG PO SCH ×2 (08:55→21:36)
[2018-02-09] MEDS: BuPROPion XL* 300 MG TAB.XL PO SCH (08:56)
[2018-02-09] MEDS: Carvedilol TAB* 25 MG PO SCH ×2 (08:56→22:15)
[2018-02-09] MEDS: Docusate CAP* 100 MG PO SCH ×2 (08:56→21:34)
[2018-02-09] MEDS ORDERED: NS 0.9% 1000 ML* 1,000 ML IV ONE (10:46)
[2018-02-09] MEDS: Enoxaparin(*) 30 MG/0.3 ML SYR SUBCUT SCH (11:52)
[2018-02-09] MEDS ORDERED: NS 0.9% 500 ML* 500 ML IV ONE (12:00)
--- NOTE | 2018-02-09 12:30 | PN ---
Subjective Date of Service: 02/09/18 Interval History: Ms. Sun reports that she was feeling very woozy this morning but is feeling better now. She slept most of the morning. Her pain is well controlled at this point and she is aware that we are planning to discontinue her long acting morphine. She denies chest pain, SOB, nausea, or abdominal pain. Family History: Unchanged from Admission Social History: Unchanged from Admission Past Medical History: Unchanged from Admission Objective Active Medications: Acetaminophen (Tylenol Tab*) 650 mg PO Q4H PRN Hydrocodone Bitart/Acetaminophen ([place] 5-325 Tab*) 1 tab PO Q4H PRN Hydrocodone Bitart/Acetaminophen ([place] 5-325 Tab*) 2 tab PO Q4H PRN Bisacodyl (Dulcolax Supp*) 10 mg [place] DAILY PRN Bupropion HCl (Bupropion Xl*) 300 mg PO QAM [facility] Carvedilol (Coreg Tab*) 25 mg PO BID [facility] Cetirizine HCl (Zyrtec*) 10 mg PO ONCE PRN; Protocol Cyclobenzaprine HCl (Flexeril Tab*) 10 mg PO TID PRN Diphenhydramine HCl (Benadryl Iv*) 12.5 mg IV Q6H PRN Docusate Sodium (Colace Cap*) 100 mg PO BID [facility] Enoxaparin Sodium (Lovenox(*)) 30 mg SUBCUT Q24H [facility] Famotidine (Pepcid Tab*) 20 mg PO QAM [facility] Sodium Chloride (Ns 0.9% 500 Ml*) 500 mls @ 1,000 mls/hr IV ONCE ONE Ketorolac Tromethamine (Toradol Inj*) 30 mg IV PUSH Q6H PRN Lactulose (Lactulose*) 30 ml PO Q6H PRN Levothyroxine Sodium (Synthroid Tab*) 200 mcg PO DAILY@0600 [facility] Liothyronine Sodium (Cytomel Tab*) 25 mcg PO DAILY@0600 [facility] Magnesium Hydroxide (Milk Of Magnesia Liq*) 30 ml PO BID [facility] Magnesium Hydroxide (Milk Of Magnesia Liq*) 30 ml PO Q6H PRN Magnesium Oxide (Magox 400 Tab*) 400 mg PO QPM [facility] Morphine Sulfate (Ms Contin(*)) 15 mg PO Q12H [facility] Dextroamphetamine Sulfate [Zenzedi] 15 Mg) 15 mg PO BID [facility] Ondansetron HCl (Zofran Inj*) 4 mg IV Q6H PRN Ondansetron HCl (Zofran Tab*) 4 mg PO Q6H PRN Pharmacy Profile Note (Coumadin Daily Reminder*) 1 note FOLLOW UP 1700 [facility] Polyethylene Glycol/Electrolytes (Miralax*) 17 gm PO DAILY PRN Ropinirole HCl (Requip Tab*) 3 mg PO QPM [facility] Vital Signs: Temp Pulse Resp BP Pulse Ox 97.4 F 78 18 88/48 95 02/09/18 11:21 02/09/18 11:21 02/09/18 11:53 02/09/18 11:57 02/09/18 11:21 Oxygen Devices in Use Now: None Appearance: Female sitting up in chair in NAD Eyes: No Scleral Icterus Ears/Nose/Mouth/Throat: NL Teeth, Lips, Gums Neck: NL Appearance and Movements; NL JVP Respiratory: Symmetrical Chest Expansion and Respiratory Effort, Clear to Auscultation Cardiovascular: NL Sounds; No Murmurs; No JVD, No Edema Abdominal: NL Sounds; No Tenderness; No Distention Extremities: No Edema Skin: No Rash or Ulcers Neurological: Alert and Oriented x 3, NL Muscle Strength and Tone Nutrition: Taking PO's Result Diagrams: 02/09/18 05:44 02/08/18 06:05 Assess/Plan/Problems-Billing Assessment: Ms. Sun is a 67yo female with a PMH significant for HTN, JOSE DE JESUS who is S/P LTKA. - Patient Problems (1) Hypotension Comment: - SBP 80s this morning. Suspect secondary to pain meds, dehydration. Not significantly anemic. - Plan for IVF bolus now, decrease pain meds, hold hctz. (2) Post-operative state Comment: - S/P LTKA. Management per primary team. - H/H decreased but not significantly anemic. Plan to decrease pain meds as per above. - Continue PT/OT as able. (3) HTN (hypertension) Comment: - Hypotensive as per above. - Continue carvedilol with hold parameters, hold hctz. (4) JOSE DE JESUS (obstructive sleep apnea) Comment: Continue home CPAP. (5) DVT prophylaxis Comment: Lovenox to Warfarin per primary team. (6) Full code status Comment: Status and Disposition: Disposition per Orthopedics.
--- NOTE | 2018-02-09 14:25 | PN ---
Progress Note - Progress Note Date of Service: 02/09/18 SOAP: Subjective: []Patient seen at bedside this morning. She feels dizzy and she has had a low BP. Denies chest pain, shortness of breath, nausea. She has felt mildly confused , stating she was sure she saw a baby in the corner. Per her daughter who is visiting, she is carrying on appropriate conversation. I saw her later in the afternoon and she reports feeling much better, still mildly dizzy. She has had normal vision and has not felt confused, only drowsy. Objective: [] Vital Signs Temp 97.4 F 02/09/18 11:21 Pulse 78 02/09/18 11:21 Resp 18 02/09/18 11:53 BP 98/62 02/09/18 12:52 Pulse Ox 95 02/09/18 11:21 Intake & Output 02/08/18 02/09/18 02/09/18 18:59 06:59 18:59 Intake Total 4289 074 0782 Output Total 500 200 500 Balance 604 286 1782 Intake: IV Fluids 680 1480 ABX - CEFAZOLIN 55 LR 625 NS (0.9%) 1480 Oral 421 010 2295 Output: Urine 500 200 500 Laboratory Last Values Hgb 11.5 g/dl (12.0-16.0) L 02/09/18 05:44 Hct 34 % (35-47) L 02/09/18 05:44 Plt Count 206 10^3/ul (150-450) 02/09/18 05:44 MPV 7.0 um3 (7.4-10.4) L 02/09/18 05:44 INR (Anticoag Therapy) 1.33 (0.77-1.02) H 02/09/18 05:44 Sodium 140 mmol/L (139-145) 02/08/18 06:05 Potassium 4.0 mmol/L (3.5-5.0) 02/08/18 06:05 Chloride 103 mmol/L (101-111) 02/08/18 06:05 Carbon Dioxide 33 mmol/L (22-32) H 02/08/18 06:05 Anion Gap 4 mmol/L (2-11) 02/08/18 06:05 BUN 14 mg/dL (6-24) 02/08/18 06:05 Creatinine 0.95 mg/dL (0.51-0.95) 02/08/18 06:05 Est GFR ( Amer) 75.7 (>60) 02/08/18 06:05 Est GFR (Non-Af Amer) 58.9 (>60) 02/08/18 06:05 BUN/Creatinine Ratio 14.7 (8-20) 02/08/18 06:05 Glucose 125 mg/dL (70-100) H 02/08/18 06:05 Calcium 8.8 mg/dL (8.6-10.3) 02/08/18 06:05 General: NAD, pale appearing in the morning, better in the afternoon. RLE: Dressing changed. Incision CDI without surrounding erythema. DF/PF intact. Sensation intact distally. DP 2+ BL LE: Calves supple and nontender without erythema, edema or palpable cords. Assessment: []POD 2 s/p left total knee arthroplasty 02/[address] Levin Plan: []WBAT PT/OT lovenox, coumadin 4 mg Stop long acting and IV morphine. Use norco and tylenol for pain. IV fluid bolus per medicine
[2018-02-09] MEDS ORDERED: Warfarin TAB(*) 4 MG PO ONE (17:00)
[2018-02-09] MEDS: Magnesium Oxide TAB* 400 MG PO SCH (17:16)
[2018-02-09] MEDS: Acetaminophen TAB* 325 MG PO PRN ×2 (17:17→22:15)
[2018-02-09] MEDS: rOPINIRole TAB* 1 MG PO SCH (17:18)
[2018-02-10 05:47] LABS: Hematocrit 32 % (35-47); Hemoglobin 10.8 g/dl (12.0-16.0); Mean Platelet Volume 7.2 um3 (7.4-10.4); Platelet Count 194 10^3/ul (150-450)
[2018-02-10] MEDS: Levothyroxine TAB* 100 MCG TAB PO SCH (05:48)
[2018-02-10] MEDS: Liothyronine TAB* 25 MCG PO SCH (05:49)
[2018-02-10 06:05] LABS: INR 1.76 (0.77-1.02)
[2018-02-10] MEDS: Acetaminophen TAB* 325 MG PO PRN (06:47)
[2018-02-10] MEDS: Cyclobenzaprine TAB* 10 MG PO PRN (08:05)
[2018-02-10] MEDS: HYDROcodone/ACETAMIN 5-325 MG* 1 TAB PO PRN ×2 (08:06→14:40)
--- NOTE | 2018-02-10 08:25 | PN ---
Progress Note - Progress Note Date of Service: 02/10/18 SOAP: Subjective: 67 y/o female s/p L TKA by Dr. Levin 02/09/2018. Patient doing well, working well with PT. no complaints, concerns. VSS, BP improved, continued mild tachy , afebrile overnight. Objective: General- Well appearing, NAD, AO, sitting in chair comfortably. MSK- LLE- DF/PF = b/l, PT 2+, negative homans sign, dressing removed, incision c/d/i, no erythema, induration noted. Dressing replaced. Vital Signs Temp 97.3 F 02/10/18 11:50 Pulse 84 02/10/18 11:50 Resp 16 02/10/18 11:50 BP 110/63 02/10/18 11:50 Pulse Ox 95 02/10/18 11:51 Intake & Output 02/09/18 02/10/18 02/10/18 18:59 06:59 18:59 Intake Total 3560 1050 Output Total 385 429 6564 Balance 3060 350 -1100 Intake: IV Fluids 1480 NS (0.9%) 1480 Oral 2080 1050 Output: Urine 224 632 0018 Other: Estimated Void Medium # Bowel Movements 1 Estimated Stool Amount Large # Voids 1 Assessment: Stable 67 y/o female s/p L TKA by Dr. Levin 02/09/2018. Plan: - DVT prophylaxis- lovenox, coumadin INR 1.76. - Continue PT/ OT - Follow up with Dr. Levin within 10-14 days - H&H - stable - post-op IV ABX - completed - D/C today to home, outpatient PT. Acetaminophen (Tylenol Tab*) 650 mg PO Q4H PRN PRN Reason: PAIN OR TEMPERATURE Last Admin: 02/10/18 06:47 Dose: 650 mg Hydrocodone Bitart/Acetaminophen ([place] 5-325 Tab*) 1 tab PO Q4H PRN PRN Reason: PAIN - MILD TO MODERATE Last Admin: 02/09/18 18:28 Dose: 1 tab Hydrocodone Bitart/Acetaminophen ([place] 5-325 Tab*) 2 tab PO Q4H PRN PRN Reason: PAIN - MODERATE TO SEVERE Last Admin: 02/10/18 08:06 Dose: 2 tab Bisacodyl (Dulcolax Supp*) 10 mg [place] DAILY PRN PRN Reason: constipation Bupropion HCl (Bupropion Xl*) 300 mg PO QAM [facility] Last Admin: 02/10/18 09:25 Dose: 300 mg Carvedilol (Coreg Tab*) 25 mg PO BID [facility] Last Admin: 02/10/18 09:25 Dose: 25 mg Cetirizine HCl (Zyrtec*) 10 mg PO ONCE PRN; Protocol PRN Reason: ALLERGIES Cyclobenzaprine HCl (Flexeril Tab*) 10 mg PO TID PRN PRN Reason: SPASMS Last Admin: 02/10/18 08:05 Dose: 10 mg Diphenhydramine HCl (Benadryl Iv*) 12.5 mg IV Q6H PRN PRN Reason: PRURITIS Docusate Sodium (Colace Cap*) 100 mg PO BID [facility] Last Admin: 02/10/18 09:25 Dose: 100 mg Famotidine (Pepcid Tab*) 20 mg PO [place] Last Admin: 02/10/18 09:25 Dose: 20 mg Lactulose (Lactulose*) 30 ml PO Q6H PRN PRN Reason: constipation Levothyroxine Sodium (Synthroid Tab*) 200 mcg PO DAILY@0600 [facility] Last Admin: 02/10/18 05:48 Dose: 200 mcg Liothyronine Sodium (Cytomel Tab*) 25 mcg PO DAILY@0600 [facility] Last Admin: 02/10/18 05:49 Dose: 25 mcg Magnesium Hydroxide (Milk Of Magnesia Liq*) 30 ml PO BID [facility] Last Admin: 02/10/18 09:25 Dose: 30 ml Magnesium Hydroxide (Milk Of Magnesia Liq*) 30 ml PO Q6H PRN PRN Reason: constipation Magnesium Oxide (Magox 400 Tab*) 400 mg PO QPM [facility] Last Admin: 02/09/18 17:16 Dose: 400 mg Dextroamphetamine Sulfate [Zenzedi] 15 Mg) 15 mg PO BID [facility] Last Admin: 02/10/18 09:22 Dose: Not Given Ondansetron HCl (Zofran Inj*) 4 mg IV Q6H PRN PRN Reason: nausea Last Admin: 02/09/18 08:20 Dose: 4 mg Ondansetron HCl (Zofran Tab*) 4 mg PO Q6H PRN PRN Reason: NAUSEA Pharmacy Profile Note (Coumadin Daily Reminder*) 1 note FOLLOW UP 1700 [facility] Last Admin: 02/09/18 17:19 Dose: 1 note Polyethylene Glycol/Electrolytes (Miralax*) 17 gm PO DAILY PRN PRN Reason: Constipation Ropinirole HCl (Requip Tab*) 3 mg PO QPM [facility] Last Admin: 02/09/18 17:18 Dose: 3 mg
[2018-02-10] MEDS: DEXTROAMPHETAMINE SULFATE 15 MG PO SCH (09:22)
[2018-02-10] MEDS: Famotidine TAB* 20 MG PO SCH (09:25)
[2018-02-10] MEDS: Magnesium Hydroxide LIQ* 30 ML UDC PO SCH (09:25)
[2018-02-10] MEDS: Docusate CAP* 100 MG PO SCH (09:25)
[2018-02-10] MEDS: BuPROPion XL* 300 MG TAB.XL PO SCH (09:25)
[2018-02-10] MEDS: Carvedilol TAB* 25 MG PO SCH (09:25)
[2018-02-10 12:35] VITALS: BP 110/63
--- NOTE | 2018-02-10 13:51 | PN ---
Subjective Date of Service: 02/10/18 Family History: Unchanged from Admission Social History: Unchanged from Admission Past Medical History: Unchanged from Admission Objective Active Medications: Acetaminophen (Tylenol Tab*) 650 mg PO Q4H PRN Hydrocodone Bitart/Acetaminophen ([place] 5-325 Tab*) 1 tab PO Q4H PRN Hydrocodone Bitart/Acetaminophen ([place] 5-325 Tab*) 2 tab PO Q4H PRN Bisacodyl (Dulcolax Supp*) 10 mg [place] DAILY PRN Bupropion HCl (Bupropion Xl*) 300 mg PO QAM [facility] Carvedilol (Coreg Tab*) 25 mg PO BID [facility] Cetirizine HCl (Zyrtec*) 10 mg PO ONCE PRN; Protocol Cyclobenzaprine HCl (Flexeril Tab*) 10 mg PO TID PRN Diphenhydramine HCl (Benadryl Iv*) 12.5 mg IV Q6H PRN Docusate Sodium (Colace Cap*) 100 mg PO BID [facility] Famotidine (Pepcid Tab*) 20 mg PO QAM [facility] Lactulose (Lactulose*) 30 ml PO Q6H PRN Levothyroxine Sodium (Synthroid Tab*) 200 mcg PO DAILY@0600 [facility] Liothyronine Sodium (Cytomel Tab*) 25 mcg PO DAILY@0600 [facility] Magnesium Hydroxide (Milk Of Magnesia Liq*) 30 ml PO BID [facility] Magnesium Hydroxide (Milk Of Magnesia Liq*) 30 ml PO Q6H PRN Magnesium Oxide (Magox 400 Tab*) 400 mg PO QPM [facility] Dextroamphetamine Sulfate [Zenzedi] 15 Mg) 15 mg PO BID [facility] Ondansetron HCl (Zofran Inj*) 4 mg IV Q6H PRN Ondansetron HCl (Zofran Tab*) 4 mg PO Q6H PRN Pharmacy Profile Note (Coumadin Daily Reminder*) 1 note FOLLOW UP 1700 [facility] Polyethylene Glycol/Electrolytes (Miralax*) 17 gm PO DAILY PRN Ropinirole HCl (Requip Tab*) 3 mg PO QPM [facility] Vital Signs - 8 hr 02/10/18 02/10/18 02/10/18 08:05 08:06 08:21 Temperature 97.9 F Pulse Rate 93 Respiratory 16 16 16 Rate Blood Pressure 106/72 (mmHg) O2 Sat by Pulse 98 Oximetry 02/10/18 02/10/18 02/10/18 09:25 10:05 11:50 Temperature 97.3 F Pulse Rate 84 Respiratory 16 16 16 Rate Blood Pressure 110/63 (mmHg) O2 Sat by Pulse 98 90 Oximetry 02/10/18 11:51 Temperature Pulse Rate Respiratory Rate Blood Pressure (mmHg) O2 Sat by Pulse 95 Oximetry Oxygen Devices in Use Now: None Result Diagrams: 02/10/18 05:11 02/08/18 06:05 Assess/Plan/Problems-Billing Assessment: Ms. Sun is a 67yo female with a PMH significant for HTN, JOSE DE JESUS who is S/P LTKA. - Patient Problems (1) Hypotension Comment: - Resolved. - Suspect secondary to pain meds, dehydration. Not significantly anemic. (2) Post-operative state Comment: - S/P LTKA. Management per primary team. - H/H decreased but not significantly anemic. - Continue PT/OT as able. (3) HTN (hypertension) Comment: - Continue carvedilol with hold parameters, resume hctz at discharge. (4) JOSE DE JESUS (obstructive sleep apnea) Comment: - Continue home CPAP. (5) DVT prophylaxis Comment: - Lovenox to Warfarin per primary team. (6) Full code status Comment: Status and Disposition: Disposition per Orthopedics.
--- NOTE | 2018-02-13 01:43 | DS ---
DISCHARGE SUMMARY: DATE OF ADMISSION: 02/07/18 DATE OF DISCHARGE: 02/10/18 ATTENDING PHYSICIAN: Crystal Levin MD * (DICTATED BY BEE LOUIS) CHIEF COMPLAINT: 1. Left knee pain. 2. Hypertension. 3. Obstructive sleep apnea. 4. Obesity. 5. Restless legs syndrome. 6. Hypothyroidism. 7. GERD. 8. Neuropathy of the left wrist. 9. Spinal stenosis. DISCHARGE DIAGNOSES: 1. Status post left total knee replacement. 2. Hypertension. 3. Obstructive sleep apnea. 4. Obesity. 5. Restless legs syndrome. 6. Hypothyroidism. 7. Gastroesophageal reflux disease. 8. Neuropathy of the left wrist. 9. Spinal stenosis. PROCEDURE: Left total knee arthroplasty. CONSULTATIONS: Physical Therapy, Occupational Therapy, Medicine. HISTORY OF PRESENT ILLNESS: The patient is a 67-year-old female who has had increasing knee pain and failed conservative treatment, who elected to undergo a left total knee arthroplasty by Dr. Crystal Levin on 02/07/18. HOSPITAL COURSE: Mrs. Sun was admitted to [facility] on where she underwent an uncomplicated left total knee arthroplasty with an estimated blood loss of 250 cc. The patient recovered on the surgical short- stay unit. On postoperative day #2, her Guillen was removed and she was voiding on her own without difficulty. Now, she advanced to regular diet and her pain was controlled with p.o. medications. Her home medications were started. Her vital signs and labs remained stable. She was able to weight bear as tolerated on the left lower extremity and advanced appropriately with physical therapy and occupational therapy. A DVT prophylaxis was managed with Lovenox and Coumadin. On postoperative day #3, she was orthopedically and medically stable for discharge to go home with home services. PHYSICAL EXAMINATION: General: Well appearing, in no acute distress, alert and oriented, appearing stated age, resting in chair comfortably. Vital Signs: Temperature 97.3, pulse 84, respirations 16, blood pressure 110/63, pulse oxygenation 65% on room air. Musculoskeletal examination of the left lower extremity with positive dorsiflexion and plantar flexion equal bilaterally with posterior tibial pulses 2+. Negative Homans sign. Dressing was removed. Integument is clear, dry, and intact with no erythema or induration noted. The dressing was replaced. Sensation was intact to light touch bilaterally. LABORATORY DATA: On date of discharge, patient's H and H was 10.8 and 32 with an INR of 1.76. DISCHARGE MEDICATIONS: 1. Coumadin 10 mg tablets 1 to 3 tablets every day at 5 p.m. per physician's instructions. 2. Colace 100 mg p.o. b.i.d. 3. Tylenol 650 mg p.o. q.4 to 6 hours p.r.n. for pain, not to exceed over 4000 mg a day. 4. Bupropion XL 300 mg p.o. q.a.m. 5. Topical betamethasone/calcipotriene p.r.n. daily. 6. Coreg 25 mg p.o. b.i.d. 7. Zyrtec 10 mg p.o. p.r.n. 8. Flexeril 10 mg p.o. t.i.d. 9. Zenzedi 15 mg p.o. b.i.d. 10. Pepcid 20 mg p.o. q.a.m. 11. Fluocinolone acetonide 1 application topically p.r.n. 12. Hydrochlorothiazide 25 mg p.o. q.a.m. 13. [place] (hydrocodone/acetaminophen) 5/325 one to two tablets every 4 to 6 hours as needed for pain. 14. Synthroid 200 mcg p.o. q.a.m. 15. Cytomel 25 mcg p.o. q.a.m. 16. Magnesium supplementation 500 mg p.o. q.p.m. 17. Multivitamin daily p.o. 18. Requip 3 tablets 1 mg tablet p.o. q.p.m. CONDITION ON DISCHARGE: Stable. DISCHARGE INSTRUCTIONS: Mrs. Sun is a very pleasant 67-year-old female, status post left total knee replacement, which is uncomplicated on 02/07/18. The patient is discharged home with followup as an outpatient PT. She will be seen at [facility] for INR, PT, blood draws every Tuesday and and she will be getting outpatient physical therapy next week. Her Coumadin dosing will be on 02/10/18, 4 mg; on 02/11/18, 2 mg; on 02/12/18, 4 mg and on with repeat INR draw. Her pain is managed with Tylenol and [place] as well as Flexeril for muscle spasms. She will continue her physical therapy exercise as shown in house. She will take Colace to prevent constipation. She will follow up with Dr. Levin in approximately 14 days for incision check and suture removal. She was instructed to go immediately to the ER should she develop chest pain or shortness of breath. Should she develop increasing fever, redness, or tenderness, she is to call the office immediately. BEE LOUIS [id number]/[facility] #: [id number] PATRICIA
== END 2018-02-10 15:15 | disposition home or self-care (01) | DRG 470 ==
LOC: AA 08:36 → SSU 17:04
PROVIDERS: ADMIT Orthopaedic Surgery Adult Reconstructive Orthopaedic Surgery; ATTEND Orthopaedic Surgery Adult Reconstructive Orthopaedic Surgery
PROC: 0SRD069 Replacement of Left Knee Joint with Oxidized Zirconium on Polyethylene Synthetic Substitute, Cemented, Open Approach (ICD-10-PCS; principal; 2018-02-07 11:00)
DX: M17.12 Unilateral primary osteoarthritis, left knee (principal); I10 Essential (primary) hypertension; E03.9 Hypothyroidism, unspecified; F32.9 Major depressive disorder, single episode, unspecified; E66.9 Obesity, unspecified; M25.562 Pain in left knee; G47.33 Obstructive sleep apnea (adult) (pediatric); G47.61 Periodic limb movement disorder; M25.762 Osteophyte, left knee; G25.81 Restless legs syndrome; K21.9 Gastro-esophageal reflux disease without esophagitis; G62.9 Polyneuropathy, unspecified; Z90.710 Acquired absence of both cervix and uterus; Z82.0 Family history of epilepsy and other diseases of the nervous system; Z90.49 Acquired absence of other specified parts of digestive tract; Z82.61 Family history of arthritis; Z80.42 Family history of malignant neoplasm of prostate; Z82.3 Family history of stroke; Z72.89 Other problems related to lifestyle; I95.9 Hypotension, unspecified; R41.0 Disorientation, unspecified; E86.0 Dehydration; R11.0 Nausea; Z68.38 Body mass index [BMI] 38.0-38.9, adult
CPT/HCPCS: 36415; 80048; 85014; 85018; 85049; 85610; 88305; 88311; 94760; A9270-GY; C1776; G8978-GP-CI; G8978-GP-CJ; G8978-GP-CK; G8979-GP-CH; G8979-GP-CI; G8980-GP-CI; G8987-GO-CJ; G8988-GO-CI; G8989-GO-CI; J0690; J1100; J1650; J1885; J2250; J2270; J2405; J2704; J2795; J3010

== ENCOUNTER 2018-07-12 10:08 | Emergency (ER) | payer MEDICARE, OTHER ==
--- NOTE | 2018-07-12 10:54 | UC ---
Throat Pain/Nasal Jose Manuel HPI - HPI Summary HPI Summary: 68-year-old woman coming in to clinic today with a complaint of runny nose frontal sinus pressure cough and chest congestion. Symptoms going on for at least 7 days. Symptoms were a lot worse over the last 1 day. No fever. No chest pain. She has been using [id number] medications with which helped some however her illness progressively got worse over the last 1 day. - History of Current Complaint Stated Complaint: SINUS COMPLAINT Time Seen by Provider: 07/12/18 10:41 - Allergies/Home Medications Allergies/Adverse Reactions: Allergies Allergy/AdvReac Type Severity Reaction Status Date / Time No Known Allergies Allergy Verified 02/07/18 09:13 PMH/Surg Hx/FS Hx/Imm Hx - Additional Past Medical History Additional PMH: PSORIASIS - Surgical History Surgical History: Yes Surgery Procedure, Year, and Place: [place] [facility] [place] Bilateral [place]. Partial Hysterectomy 1979 [place] - Family History Known Family History: Positive: Hypertension Negative: Diabetes Family History: CVA - Social History Alcohol Use: None Substance Use Type: None Smoking Status (MU): Never Smoked Tobacco - Immunization History Most Recent Influenza Vaccination: 2016 Most Recent Tetanus Shot: unknown Most Recent Pneumonia Vaccination: in recent past Review of Systems Constitutional: Negative Skin: Negative Eyes: Negative ENT: Sore Throat, Nasal Discharge, Sinus Congestion, Sinus Pain/Tenderness Respiratory: Cough Cardiovascular: Negative Gastrointestinal: Negative Motor: Negative Neurovascular: Negative Musculoskeletal: Negative Neurological: Negative Psychological: Negative Is Patient Immunocompromised?: No All Other Systems Reviewed And Are Negative: Yes Physical Exam Triage Information Reviewed: Yes Appearance: No Pain Distress, Well-Nourished, Ill-Appearing - MILD Vital Signs Reviewed: Yes Eye Exam: Normal Eyes: Positive: Conjunctiva Clear ENT: Positive: Pharyngeal erythema, Nasal congestion, Nasal drainage, TMs normal , Sinus tenderness Neck exam: Normal Neck: Positive: Supple, Nontender Respiratory: Positive: No respiratory distress, No accessory muscle use, Rhonchi , Other: - DRY COUGH Cardiovascular: Positive: RRR Musculoskeletal Exam: Normal Musculoskeletal: Positive: Strength Intact Neurological Exam: Normal Neurological: Positive: Alert Psychological Exam: Normal Psychological: Positive: Age Appropriate Behavior Skin: Positive: Other - CHRONIC PSORIASIS Throat Pain/Nasal Course/Dx - Course Course Of Treatment: Patient symptoms have been going on for greater than 7 days. We discussed viral versus bacterial infections and the use of antibiotics. At this time the patient prefers to be on antibiotic. She also requests a steroid taper as this has helped her in the past with similar symptoms. Follow-up with primary care doctor. Check sooner if worse. - Differential Dx/Diagnosis Provider Diagnoses: SINUSITIS. BRONCHITIS. COUGH Discharge - Sign-Out/Discharge Documenting (check all that apply): Patient Departure All imaging exams completed and their final reports reviewed: No Studies - Discharge Plan Condition: Stable Disposition: HOME Prescriptions: Amoxicillin/Clavulanate TAB* [Augmentin TAB 875*] 875 mg PO BID #20 tab predniSONE TAB* [Deltasone 10 MG TAB*] 10 mg PO SEE INSTRUCTIONS #30 tab Patient Education Materials: Sinusitis (ED), Acute Bronchitis (ED) Referrals: Fady Milligan MD [Primary Care Provider] - Additional Instructions: FOLLOW UP WITH YOUR DOCTOR. GET RECHECKED FOR ANY WORSENING OF YOUR CONDITION OR QUESTIONS OR CONCERNS. - Billing Disposition and Condition Condition: STABLE Disposition: Home
[2018-07-12 10:59] VITALS: BP 128/78
== END 2018-07-12 11:08 | disposition home or self-care (01) ==
LOC: UCCORT 10:08
DX: J32.9 Chronic sinusitis, unspecified (principal); J40 Bronchitis, not specified as acute or chronic
CPT/HCPCS: 99212; G0463

== ENCOUNTER 2019-02-07 07:12 | Day surgery (SDC) | payer MEDICARE, OTHER ==
[~2019-02-07 07:12] MED LIST changes: -Acetaminophen IV 1GM/100ML * 1,000 MG/100 ML VIAL IVPB ONE; +Acetaminophen TAB* 325 MG PO PRN; -Buffered Lidocaine 0.9% SYRIN* 5 ML/SYR SYRINGE INTRADERM ONE; +Buffered Lidocaine 1% SYRIN* 1 ML/SYRINGE INTRADERM ONE; -Dexamethasone IV* 4 MG/ML 1 ML (4 MG) IV SLOW PU ONE; -Famotidine TAB* 20 MG PO ONE; -Gabapentin CAP(*) 300 MG PO ONE; +Lactated Ringers 1000 ML Bag* 1,000 ML IV SCH; -celeCOXIB CAP* 200 MG PO ONE
[2019-02-07] MEDS ORDERED: Midazolam* 1 MG/ML 2 ML VIAL (2 MG) ONE (09:19)
[2019-02-07 10:06] VITALS: BP 130/72
--- NOTE | 2019-02-07 12:34 | OP ---
OPERATIVE NOTE: DATE OF OPERATION: 02/07/19 DATE OF : 52 SURGEON: Sameer Abdi M.D. PREOPERATIVE DIAGNOSIS: Cataract, left eye. POSTOPERATIVE DIAGNOSIS: Cataract, left eye. OPERATIVE PROCEDURE: Extracapsular cataract extraction with intraocular lens implant, left eye. PROCEDURE: The patient was brought to the operating room after being given 1/2% Alcaine with epineph rine drops in the preoperative area. The eye was prepped and draped in the usual sterile fashion. S terile drape and eyelid speculum were placed. Again, topical 1/2% Alcaine with epinephrine was given . A paracentesis incision was made at the 3 o'clock position with the No.75 blade. Clear cornea inc ision 2.2 x 2.2-mm was created at the 6 o'clock position starting at the anterior limbus using the 2. 2-mm keratome. The anterior chamber was irrigated with 0.4 mL of 1% non-preservative intracameral li docaine and filled with DisCoVisc. A capsulorrhexis was completed using the cystotome and the Utrata forceps. Hydrodissection was performed with balanced salt solution. The lens nucleus was removed wi th the Phacoemulsification handpiece without incident. Cortex was removed with the irrigation-aspira tion handpiece. The capsular bag was re-inflated using DisCoVisc and an [id number] 22.5 implant was inse rted with the shooter. The irrigation-aspiration handpiece was used to remove all residual DisCoVisc . The eye was refilled with balanced salt solution and the wound checked and found to be watertight. Topical Maxitrol drops were given. [id number]/[facility] #: [id number]
[2019-02-07] MEDS ORDERED: acetaZOLAMIDE TAB* 250 MG ONE (13:58)
[2019-02-07] MEDS ORDERED: Neomycin/Polymy/Dex OPTH.SUSP* MAXITROL 0.1% 5 ML ONE (13:58)
[2019-02-07] MEDS ORDERED: Proparacaine 0.5% OPHTH.SOL* 15 ML BTL ONE (13:58)
[2019-02-07] MEDS ORDERED: Lidocaine 1%* 5 ML VIAL ONE (13:58)
[2019-02-07] MEDS ORDERED: Cyclopentolate 1% OPTH.SOL* 2 ML BTL ONE (13:58)
[2019-02-07] MEDS ORDERED: Povidone Iodine 5% OPTH* 30 ML BTL ONE (13:58)
[2019-02-07] MEDS ORDERED: Lidocaine 2% EPI 1:200000 MPF*10-20 ML VIAL ONE (13:58)
[2019-02-07] MEDS ORDERED: Phenylephrine OPHTH SOL 2.5%* 2 ML ONE (13:58)
[2019-02-07] MEDS ORDERED: Ketorolac 0.5% OPHTH (NF) 0.5 % 5 ML BTL ONE (13:58)
== END 2019-02-07 09:55 | disposition home or self-care (01) ==
LOC: OREAST 07:12
PROVIDERS: ATTEND Specialist
DX: H25.812 Combined forms of age-related cataract, left eye (principal); H04.123 Dry eye syndrome of bilateral lacrimal glands; I10 Essential (primary) hypertension; E03.9 Hypothyroidism, unspecified; K21.9 Gastro-esophageal reflux disease without esophagitis; G47.33 Obstructive sleep apnea (adult) (pediatric)
CPT/HCPCS: A9270-GY; J2250; V2632

== ENCOUNTER 2019-02-14 10:22 | Day surgery (SDC) | payer MEDICARE, OTHER ==
[~2019-02-14 10:22] MED LIST changes: -Lactated Ringers 1000 ML Bag* 1,000 ML IV SCH
[2019-02-14] MEDS ORDERED: Midazolam* 1 MG/ML 2 ML VIAL (2 MG) ONE ×2 (12:40→13:07)
[2019-02-14] MEDS ORDERED: fentaNYL* 50 MCG/ML 2 ML VIAL (100 MCG VIAL) ONE (13:17)
[2019-02-14 13:37] VITALS: BP 139/80
[2019-02-14] MEDS ORDERED: Phenylephrine OPHTH SOL 2.5%* 2 ML ONE (13:46)
[2019-02-14] MEDS ORDERED: Povidone Iodine 5% OPTH* 30 ML BTL ONE (13:46)
[2019-02-14] MEDS ORDERED: Cyclopentolate 1% OPTH.SOL* 2 ML BTL ONE (13:46)
[2019-02-14] MEDS ORDERED: Neomycin/Polymy/Dex OPTH.SUSP* MAXITROL 0.1% 5 ML ONE (13:46)
[2019-02-14] MEDS ORDERED: Proparacaine 0.5% OPHTH.SOL* 15 ML BTL ONE (13:46)
[2019-02-14] MEDS ORDERED: acetaZOLAMIDE TAB* 250 MG ONE (13:46)
[2019-02-14] MEDS ORDERED: Lidocaine 2% EPI 1:200000 MPF*10-20 ML VIAL ONE (13:46)
[2019-02-14] MEDS ORDERED: Ketorolac 0.5% OPHTH (NF) 0.5 % 5 ML BTL ONE (13:46)
[2019-02-14] MEDS ORDERED: Lidocaine 1%* 5 ML VIAL ONE (13:46)
--- NOTE | 2019-02-14 14:55 | OP ---
DATE OF OPERATION: 02/14/2019. DATE OF : 1950. SURGEON: Sameer Abdi M.D. PREOPERATIVE DIAGNOSIS: Cataract right eye. POSTOPERATIVE DIAGNOSIS: Cataract right eye. OPERATIVE PROCEDURE: Extracapsular cataract extraction with intraocular lens implant right eye. PROCEDURE: The patient was brought to the operating room after being given 1/2% Alcaine with epineph rine drops in the preoperative area. The eye was prepped and draped in the usual sterile fashion. S terile drape and eyelid speculum were placed. Again, topical 1/2% Alcaine with epinephrine was given . A paracentesis incision was made at the 9 o'clock position with the No.75 blade. Clear cornea inc ision 2.2 x 2.2-mm was created at the 12 o'clock position starting at the anterior limbus using the 2 .2-mm keratome. The anterior chamber was irrigated with 0.4 mL of 1% non-preservative intracameral l idocaine and filled with DisCoVisc. A capsulorrhexis was completed using the cystotome and the Utrat a forceps. Hydrodissection was performed with balanced salt solution. The lens nucleus was removed w ith the Phacoemulsification handpiece without incident. Cortex was removed with the irrigation-aspir ation handpiece. The capsular bag was re-inflated using DisCoVisc and an [id number] implant was inser alysa with the shooter. The irrigation-aspiration handpiece was used to remove all residual DisCoVisc. The eye was refilled with balanced salt solution and the wound checked and found to be watertight. Topical Maxitrol drops were given. [id number]/[facility] #: [id number]
== END 2019-02-14 13:42 | disposition home or self-care (01) ==
LOC: OREAST 10:22
PROVIDERS: ATTEND Specialist
DX: H25.811 Combined forms of age-related cataract, right eye (principal); H04.123 Dry eye syndrome of bilateral lacrimal glands; I10 Essential (primary) hypertension; G47.33 Obstructive sleep apnea (adult) (pediatric); E03.9 Hypothyroidism, unspecified; K21.9 Gastro-esophageal reflux disease without esophagitis
CPT/HCPCS: A9270-GY; J2250; J3010; V2632

== ENCOUNTER 2019-08-02 06:25 | Day surgery (SDC) | payer MEDICARE, OTHER ==
[~2019-08-02 06:25] MED LIST changes: -Acetaminophen TAB* 325 MG PO PRN; +Famotidine IV* 10 MG/ML 2 ML (20 mg) IV ONE; +Famotidine IV* 10 MG/ML 2 ML (20 mg) ONE; +Lactated Ringers 1000 ML Bag* 1,000 ML IV SCH
[2019-08-02] MEDS ORDERED: ceFAZolin 2 GM PREMIX in ORs 2 GM/50 ML BAG ONE (06:37)
[2019-08-02] MEDS ORDERED: Bupivacaine 0.5%* 50 ML MDV VIAL ONE (07:12)
[2019-08-02] MEDS ORDERED: Lidocaine 1% INJ* 10 MG/ML 30 ML SDV ONE (07:12)
[2019-08-02] MEDS ORDERED: Midazolam* 1 MG/ML 2 ML VIAL (2 MG) ONE (07:20)
[2019-08-02] MEDS ORDERED: Lidocaine 2% PF * 5 ML VIAL ONE (07:21)
[2019-08-02] MEDS ORDERED: Propofol* 10 MG/ML 20 ML BTL ONE (07:21)
[2019-08-02] MEDS ORDERED: Bupivacaine 0.25% SDV* 30 ML ONE (07:52)
[2019-08-02] MEDS ORDERED: fentaNYL* 50 MCG/ML 2 ML VIAL (100 MCG VIAL) ONE (08:22)
[2019-08-02] MEDS ORDERED: fentaNYL* 50 MCG/ML 2 ML VIAL (100 MCG VIAL) IV PRN (08:55)
[2019-08-02] MEDS ORDERED: Acetaminophen TAB* 325 MG PO PRN (08:55)
[2019-08-02] MEDS ORDERED: oxyCODONE TAB* 5 MG TAB PO PRN (08:55)
[2019-08-02] MEDS ORDERED: PROCHLORPERAZINE INJ 5 MG/ML 2 ML VIAL IV PRN (08:55)
[2019-08-02] MEDS ORDERED: Ondansetron INJ* 2 MG/ML VIAL IV PRN (08:55)
[2019-08-02] MEDS ORDERED: Naloxone* 0.4 MG/ML 1 ML VIAL IV PRN (08:55)
[2019-08-02 09:55] VITALS: BP 130/82
--- NOTE | 2019-08-02 13:54 | OP ---
DATE OF OPERATION: 08/02/19 [facility] DATE OF : 52 SURGEON: Jaciel Stevenson MD RUBBLE PLACER: BEE Alas ANESTHESIOLOGIST: Dr. Ute Perez ANESTHESIA: Local MAC. PRE-OP DIAGNOSIS: Left indeterminate volar wrist soft tissue mass. POST-OP DIAGNOSIS: Left volar wrist ganglion cyst. OPERATIVE PROCEDURE: Excision of left volar wrist ganglion cyst. INDICATIONS: Ms. Sun is 69. She has the aforementioned condition. We had talked about risks and benefits, she wanted to have the mass excised. ESTIMATED BLOOD LOSS: 2 mL. COMPLICATIONS: None. FINDINGS: See above and below. DESCRIPTION OF PROCEDURE: Ms. Sun was seen in the preoperative holding area. The correct site, side, and procedure were identified. We came back to the operating room where the arm was prepped and draped in the usual fashion and a time- out was performed. I did anesthetize the operative area with 0.25% plain Marcaine. The arm was then exsanguinated with the Esmarch and the tourniquet was inflated to 225 mmHg. I made a little V-shaped incision over the volar aspect of the wrist flexion crease. Dissection was carried down, a ganglion cyst was noted that was emanating just off the radial aspect of the FCR tendon sheath. Dissection was carried down, the cyst was amputated at the tendon sheath, this was handed off as a specimen. The sheath was opened. I retracted the tendon ulnarly and was able to cauterize the base of the subsheath and the surrounding joint capsule of the scaphoid trapezial joint with the bipolar cautery. At this point, everything was looking good, the wound was irrigated out. Skin was closed. Soft dressings were applied as well as a plaster wrist splint. She was taken to the recovery room in stable condition. [id number]/[facility] [place] #: [id number] MTDD
== END 2019-08-02 09:42 | disposition home or self-care (01) ==
LOC: OREAST 06:25
PROVIDERS: ATTEND Orthopaedic Surgery Hand Surgery
DX: M67.432 Ganglion, left wrist (principal); G47.33 Obstructive sleep apnea (adult) (pediatric); E03.9 Hypothyroidism, unspecified; K21.9 Gastro-esophageal reflux disease without esophagitis; I10 Essential (primary) hypertension; Z68.41 Body mass index [BMI] 40.0-44.9, adult; M19.90 Unspecified osteoarthritis, unspecified site
CPT/HCPCS: 88304; J0690; J2250; J2704; J3010; J3490

== ENCOUNTER 2019-10-09 10:57 | Emergency (ER) | payer MEDICARE, OTHER ==
--- OUTSIDE RECORDS SUMMARY | 2019-10-09 11:03 | XMS REPORT | Continuity of Care Document ---
:1950 External Reference #:[id number] Author Name Terrie Loo DNP, RN, SCRAP DEALER-BC (transmitted by agent of provider Carly Funes) Address [address], [address] [place] [id number] Care Team Providers Name Role Phone Tiffanie Godinez MD - Care Team Information Director [employer] Family Medicine Problems Active Problems Provider Date Periodic limb movement disorder Terrie Loo DNP, RN, SCRAP DEALER-BC Onset: 10/17 Obstructive sleep apnea of adult Terrie Loo DNP, RN, SCRAP DEALER-BC Onset: 10/2011 Spinal stenosis of lumbar region Edgardo Samuel M.D. Onset: 09/15/2016 Localized, primary osteoarthritis Crystal Levin M.D. Onset: 01/04/2018 Arthroplasty of knee Crystal Levin M.D. Onset: 02/20/2018 Obstructive sleep apnea syndrome Terrie Loo DNP, RN, SCRAP DEALER-BC Onset: Note: Severe Social History Type Date Description Comments Sex Unknown Tobacco Use Start: Unknown Never Smoked Cigarettes Smoking Status Reviewed: 09/10/19 Never Smoked Cigarettes ETOH Use Rarely consumes alcohol Tobacco Use Start: Unknown Patient has never smoked Recreational Drug Use Denies Drug Use Exercise Type/Frequency Does not exercise Allergies, Adverse Reactions, Alerts Description No Known Drug Allergies Medications Active Medications SIG Qnty Indications Ordering Date Provider Voltaren apply 2 grams 200units Sameer Duckworth, 07/13/2019 1% Gel twice daily as M.D. needed for pain to the right knee bursae Methotrexate take 7 90tabs Sameer Duckworth, 06/20/2019 2.5mg capsules/tablets M.D. Tablets by mouth once weekly on Folic Acid take one 90tabs Sameer Duckworth, 06/20/2019 1mg Tablets capsule/tablet M.D. daily by mouth Carvedilol 1 by mouth twice 180tabs Unknown 25mg Tablets a day Magnesium 1 by mouth every Unknown 500mg day Capsules Multi For Her 1 by mouth every 90caps Unknown Capsules day Sertraline HCL 1 by mouth every 90tabs Unknown 100mg day Tablets Singulair 1 by mouth every 90tabs Unknown 10mg Tablets day prn Ibuprofen 2 tabs by mouth 30tabs Unknown 200mg Tablets every 4 to 6 hours as needed Levothyroxine Sodium 1 by mouth every 90tabs Unknown day 200mcg Tablets Ropinirole HCL 4 tabs by mouth Unknown 1mg in thee evening. Tablets Flonase Allergy spray 1 spray in Unknown Relief each nostril 50mcg/Act twice daily Suspension Omeprazole 1 by mouth every Unknown 20mg day Capsules DR Gabapentin Take One Capsule Unknown 100mg By Mouth AT Capsules Bedtime Stelara 45 mg initially Unknown 45mg/0.5ML and 4 weeks Solution later, followed by 45 mg every 12 weeks History Medications Tramadol HCL 1-2 tablets by 20tabs Jaciel Stevenson MD 08/02/2019 - 50mg mouth every 6 08/03/2019 Tablets hours as needed pain Medications Administered in Office Medication SIG Qnty Indications Ordering Provider Date Triamcinolone (Kenalog) Sameer Duckworth M.D. 07/13/2019 Injection Immunizations Description No Information Available Vital Signs Date Vital Result Comment 09/10/2019 11:07am Height 60 inches 5'0" Weight 215.00 lb Heart Rate 84 /min BP Systolic 140 mmHg BP Diastolic 72 mmHg O2 % BldC Oximetry 96 % BMI (Body Mass Index) 42.0 kg/m2 09/07/2019 1:19pm Height 60 inches 5'0" Weight 215.00 lb Heart Rate 73 /min BP Systolic Sitting 138 mmHg BP Diastolic Sitting 82 mmHg Body Temperature 97.9 F Pain Level 6 O2 % BldC Oximetry 97 % BMI (Body Mass Index) 42.0 kg/m2 Results Test Acquired Date Facility Test Result H/L Range Note Laboratory test 08/13/2019 [facility] Cancer Ag (CA 10 U/mL < 46 [address] [place] [address] [phone] Carcinoembryonic Antigen Cea 1.9 ng/mL Normal 0.1-5.0 2 Laboratory test 08/13/2019 [facility] Erythrocyte Sed 10 mm/Hr Normal 0-[address] [place] [address] [phone] C Reactive Protein 2.20 mg/L Normal <8.01 Aldolase 7.1 U/L <7.7 3 CBC Auto 08/13/2019 [facility] White Blood 5.8 10^3/uL Normal 3.5-10.[address] [place] [address] [phone] Red Blood Count 4.77 10^6/uL Normal 3.70-4.87 Hemoglobin 14.7 g/dL Normal 12.0-16.0 Hematocrit 43 % Normal 35-47 Mean Corpuscular Volume 90 fL Normal 80-97 Mean Corpuscular Hemoglobin 31 pg Normal 27-31 Mean Corpuscular HGB Conc 34 g/dL Normal 31-36 Red Cell Distribution Width 15 % Normal 10-15 Platelet Count 279 10^3/uL Normal 150-450 Mean Platelet Volume 7.7 fL Normal 7.4-10.4 Abs Neutrophils 3.8 10^3/uL Normal 1.5-7.7 Abs Lymphocytes 1.1 10^3/uL Normal 1.0-4.8 Abs Monocytes 0.6 10^3/uL Normal 0-0.8 Abs Eosinophils 0.3 10^3/uL Normal 0-0.6 Abs Basophils 0.0 10^3/uL Normal 0-0.2 Abs Nucleated RBC 0.0 10^3/uL Granulocyte % 64.5 % Lymphocyte % 18.2 % Monocyte % 10.6 % Eosinophil % 5.9 % Basophil % 0.8 % Nucleated Red Blood Cells % 0.0 Comp Metabolic 08/13/2019 [facility] Sodium 141 mmol/L Normal 135-[address] [place] [address] [phone] Potassium 4.4 mmol/L Normal 3.5-5.0 Chloride 105 mmol/L Normal 101-111 Co2 Carbon Dioxide 28 mmol/L Normal 22-32 Anion Gap 8 mmol/L Normal 2-11 Glucose 90 mg/dL Normal 70-100 Blood Urea Nitrogen 15 mg/dL Normal 6-24 Creatinine 0.87 mg/dL Normal 0.51-0.95 BUN/Creatinine Ratio 17.2 Normal 8-20 Calcium 9.8 mg/dL Normal 8.6-10.3 Total Protein 6.9 g/dL Normal 6.4-8.9 Albumin 4.5 g/dL Normal 3.2-5.2 Globulin 2.4 g/dL Normal 2-4 Albumin/Globulin Ratio 1.9 Normal 1-3 Total Bilirubin 0.50 mg/dL Normal 0.2-1.0 Alkaline Phosphatase 77 U/L Normal 34-104 Alt 21 U/L Normal 7-52 Ast 20 U/L Normal 13-39 Egfr Non- 64.7 >60 Egfr 78.3 >60 4 Surgical 08/02/2019 [facility] Surgical SEE RESULT 5, [address] [place] [address] [phone] PDFReport [id number] <SEE NOTE> Connective Tissue 06/20/2019 [facility] Anti-Nuclear Antibody 0.6 U [address] [place] [address] [phone] Cyclic Citrullinated Peptide <15.6 U 8 Interpretation See Comment 9 Laboratory test 06/20/2019 [facility] Erythrocyte Sed 8 mm/Hr Normal 0-[address] [place] [address] [phone] C Reactive Protein 2.70 mg/L Normal <8.01 Aldolase 5.8 U/L <7.7 10 Comp Metabolic 06/20/2019 [facility] Sodium 142 mmol/L Normal 135-[address] [place] [address] [phone] Potassium 4.1 mmol/L Normal 3.5-5.0 Chloride 106 mmol/L Normal 101-111 Co2 Carbon Dioxide 28 mmol/L Normal 22-32 Anion Gap 8 mmol/L Normal 2-11 Glucose 87 mg/dL Normal 70-100 Blood Urea Nitrogen 17 mg/dL Normal 6-24 Creatinine 0.94 mg/dL Normal 0.51-0.95 BUN/Creatinine Ratio 18.1 Normal 8-20 Calcium 9.7 mg/dL Normal 8.6-10.3 Total Protein 6.6 g/dL Normal 6.4-8.9 Albumin 4.4 g/dL Normal 3.2-5.2 Globulin 2.2 g/dL Normal 2-4 Albumin/Globulin Ratio 2.0 Normal 1-3 Total Bilirubin 0.50 mg/dL Normal 0.2-1.0 Alkaline Phosphatase 70 U/L Normal 34-104 Alt 33 U/L Normal 7-52 Ast 28 U/L Normal 13-39 Egfr Non- 59.4 >60 Egfr 71.9 >60 11 Hepatitis Acute 06/20/2019 [facility] Hepatitis A AB Negative Negative Panel [address] [place] [address] [phone] Hepatitis B Core AB Igm Nonreactive Nonreactive Hepatitis B Surface Ag Negative Negative Hepatitis C Antibody 06/20/2019 [facility] HCV Index 0.01 s/c [address] [place] [address] [phone] Hepatitis C Antibody Negative Negative Laboratory test 06/20/2019 [facility] Angiotensin 53 U/L 16 - 85 [address] [place] [address] Enzyme [phone] Anca AB Ser If 06/20/2019 [facility] C-Anca Negative Negative [address] [place], [place] [address] [phone] P-Anca Negative Negative 13 CBC Auto 06/20/2019 [facility] White Blood 5.1 10^3/uL Normal 3.5-10.[address] [place] [address] [phone] Red Blood Count 4.77 10^6/uL Normal 3.70-4.87 Hemoglobin 14.3 g/dL Normal 12.0-16.0 Hematocrit 43 % Normal 35-47 Mean Corpuscular Volume 90 fL Normal 80-97 Mean Corpuscular Hemoglobin 30 pg Normal 27-31 Mean Corpuscular HGB Conc 34 g/dL Normal 31-36 Red Cell Distribution Width 14 % Normal 10-15 Platelet Count 255 10^3/uL Normal 150-450 Mean Platelet Volume 7.5 fL Normal 7.4-10.4 Abs Neutrophils 3.0 10^3/uL Normal 1.5-7.7 Abs Lymphocytes 1.0 10^3/uL Normal 1.0-4.8 Abs Monocytes 0.5 10^3/uL Normal 0-0.8 Abs Eosinophils 0.5 10^3/uL Normal 0-0.6 Abs Basophils 0.0 10^3/uL Normal 0-0.2 Abs Nucleated RBC 0.0 10^3/uL Granulocyte % 59.0 % Lymphocyte % 19.6 % Monocyte % 10.6 % Eosinophil % 9.9 % Basophil % 0.9 % Nucleated Red Blood Cells % 0.1 Laboratory test 06/20/2019 [facility] Thyroperoxidase AB 0.99 Normal <[address] IU/[place] [address] [phone] Free T4 (Free Thyroxine) 0.98 ng/dL Normal 0.61-1.12 Miscellaneous Test See Comment 14 1 ADDITIONAL INFORMATION The testing method is an electrochemiluminescence assay manufactured by [employer] and performed on the Hardy system. Values obtained with different assay methods or kits may be different and cannot be used interchangeably. Test results cannot be interpreted as absolute evidence for the presence or absence of malignant disease. Test Performed by: [facility][Note 3] [address] [id number] Network Developer: Shane Devlin M.D. Ph.D.; CLIA# [id number] 2 Nonsmokers: < 2.9 ng/mL Some smokers may have elevated CEA, usually <5.0 ng/mL. Serum markers are not specific for malignancy, and values may vary by method. The testing method is an immunoenzymatic assay emergency department coordinator by [employer] performed on Jordon Tristen DXI 600. Do not interpret serum CEA levels as absolute evidence of the presence or the absence of malignant disease. Use serum CEA in conjunction with information from the clinical evaluation of the patient and other diagnostic procedures. 3 Test Performed by: [facility] [address] [place] [address] Network Developer: Shane Devlin M.D. Ph.D.; CLIA# [id number] 4 Because ethnic data is not always readily [...] 15-29 5 Kidney failure <15 (or dialysis) 5 [id number] 6 SEE RESULT BELOW Name: JEANNA STAPLES : [address]: Jaciel Stevenson MD Acct: [id number] Unit: [id number] AGE: 69 Location: [facility] Re08/02/19 SEX: F Status: [facility] [place] SPEC: [id number] IMELDA: 08/02/190835 [facility] DR: Jaciel Stevenson MD REQ: [id number] RECD: 08/02/19115 STATUS: SOUT _ ORDERED: LEVEL 3 COMMENTS: [id number] FINAL DIAGNOSIS Wrist, left, excision: -- Ganglion cyst. PRE-OPERATIVE DIAGNOSIS Left wrist indeterminate subcutaneous mass GROSS DESCRIPTION The specimen is received in formalin labeled, Left Wrist Ganglion Cyst, and consists of a 0.9 by up to 0.7 x 0.3 cm white-pink irregular rubbery fibrous tissue fragment which is trisected and submitted entirely in one cassette. Signed by and Reported on: Vanessa Hendricks MD 08/03/19 1301 END OF REPORT DEPARTMENT OF PATHOLOGY, [address] [place] [address] Elbert Briones M.D. Director JHONNY # [id number] 7 REFERENCE VALUE <=1.0 (Negative) 8 REFERENCE VALUE <20.0 (Negative) 9 Tests for antibodies to dsDNA and VERENICE antigens are not performed automatically unless the VIJAYA result is > or = 3.0 U. Studies performed at [facility] indicate that positive VIJAYA results <3.0 U are rarely accompanied by positive second order tests. Test Performed by: [facility] [address] [place] [address] Network Developer: Shane Devlin M.D. Ph.D.; CLIA# [id number] 10 Test Performed by: [facility] - [address] [address] Network Developer: Shane Devlin M.D. Ph.D.; CLIA# [id number] 11 Because ethnic data is not always [...] 5 Kidney failure <15 (or dialysis) 12 Test Performed by: [place] [id number] Network Developer: Shane Devlin M.D. Ph.D.; CLIA# [id number] 13 Negative for cANCA and pANCA patterns by immunofluorescence. ADDITIONAL INFORMATION This test was developed and its performance characteristics determined by [facility] in a manner consistent with CLIA requirements. This test has not been cleared or approved by the U.S. Food and Drug Administration. Test Performed by: [facility] [address] [place] [address] Network Developer: Shane Devlin M.D. Ph.D.; CLIA# [id number] 14 Test Result Flag Unit RefValue MyoMarker Panel 3 Plus Anti-Patricia-1 Ab <20 Units <20 PL-[address]12 Negative Negative EJ Negative Negative OJ Negative Negative SRP Negative Negative FL-2 Negative Negative Fibrillarin (U3 ELEMENTARY SCHOOL BAND DIRECTOR) Negative Negative MDA-5 (P140)(CADM-140) <20 Units <20 NXP-2 (P140) <20 Units <20 TIF1 GAMMA (P155/140) <20 Units <20 Anti-PM/Scl-100 Ab <20 Units <20 U2 snRNP Negative Negative Anti-U1-ELEMENTARY SCHOOL BAND DIRECTOR Ab <20 Units <20 Ku Negative Negative Anti-SS-A 52 kD Ab, IgG <20 Units <20 ADDITIONAL INFORMATION EIA Interpretation: Negative <20 Units Weak Positive 20-39 Units Moderate Positive 40-80 Units Strong Positive >80 Units This panel was developed and its performance characteristics validated by [facility]. There is no FDA approved assay for the above tests. As a lab developed test (LDT), approval or clearance by the FDA is not required. This test may be used for clinical purposes and should not be regarded as investigational or for research. Anti-HAILEY 1, IgG <20 Units <20 ADDITIONAL INFORMATION EIA Interpretation: Negative <20 Units Weak Positive 20-39 Units Moderate Positive 40-80 Units Strong Positive >80 Units This panel was developed and its performance characteristics validated by [facility]. There is no FDA approved assay for the above tests. As a lab developed test (LDT), approval or clearance by the FDA is not required. This test may be used for clinical purposes and should not be regarded as investigational or for research. Test Performed by: [facility] 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 myopathy 09/07/2019 M70.51 Other bursitis of knee, right knee Sameer Duckworth M.D. 09/07/2019 L40.50 Arthropathic psoriasis, unspecified Sameer Duckworth M.D. 09/07/2019 Z79.899 Other nursing home (current) drug Sameer Duckworth M.D. therapy 08/14/2019 R22.32 Localized swelling, mass and lump, Jaciel Stevenson MD left upper limb 08/14/2019 M67.432 Ganglion, left wrist Jaciel Stevenson MD 08/14/2019 Z47.89 Encounter for other orthopedic Jaciel Stevenson MD aftercare 08/13/2019 L40.50 Arthropathic psoriasis, unspecified Sameer Duckworth M.D. 08/13/2019 M70.51 Other bursitis of knee, right knee Sameer Duckworth M.D. 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 myopathy 08/13/2019 Z79.899 Other tank terminal gauger (current) drug Sameer Duckworth M.D. therapy 08/02/2019 R22.32 Localized swelling, mass and lump, BEE Alas left upper limb 08/02/2019 M67.432 Ganglion, left wrist BEE Alas 08/02/2019 R22.32 Localized swelling, mass and lump, Jaciel Stevenson MD left upper limb 08/02/2019 M67.432 Ganglion, left wrist Jaciel Stevenson MD 07/13/2019 L40.50 Arthropathic psoriasis, unspecified Sameer Duckworth M.D. 07/13/2019 M70.51 Other bursitis of knee, right knee Sameer Duckworth M.D. 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 myopathy 07/13/2019 Z79.899 Other tank terminal gauger (current) drug Sameer Duckworth M.D. 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 myopathy 06/20/2019 Z79.899 Other nursing home (current) drug Sameer Duckworth M.D. therapy 06/20/2019 R06.00 Dyspnea, unspecified Sameer Duckworth M.D. 06/20/2019 G47.61 Periodic limb movement disorder Sameer Duckworth M.D. 06/20/2019 M67.449 Ganglion, unspecified hand Sameer Duckworth M.D. 06/20/2019 L40.50 Arthropathic psoriasis, unspecified Sameer Duckworth M.D. Plan of Treatment Future Appointment(s):09/16/2020 11:15 am - Terrie Loo DNP, RN, SCRAP DEALER-BC at [facility]12/10/2019 11:00 am - Sameer Duckworth M.D. at [facility]09/10/2019 - Terrie Loo DNP, RN, SCRAP DEALER- BCG47.33 Obstructive sleep apnea (adult) (pediatric)Comments:On CPAP 12-20 cm AHI 2.7/hour normalFollow up:1 yearRecommendations:Continue PAP device, Benefitting and compliant with treatment. Cleaning Wipe off mask daily (baby wipe-no scent, or warm water) Clean mask, tubing, filter, and water chamber weekly in mild no scent dish soap and water. Hang to dry. If you have any sleepiness while driving you MUST avoid operating a vehicle or machinery. If you have difficulty with your equipment, or need to replace your mask or hoses, please contact your homecare agency. A weight change of 20 pounds or more may have an effect onyour equipment; if you are experiencing problems please call for an appointment. If you have any further questions, please call the [facility] at [phone]. Functional Status Description No Information Available Mental Status Description No Information Available Referrals Refer to Reason for Referral Status Appt Date Isa Bunch M.D. Please consider ganglion cyst removal Scheduled wrist [address] [facility] [place] [address] [place] [address] [phone]
--- OUTSIDE RECORDS SUMMARY | 2019-10-09 11:03 | XMS REPORT | Continuity of Care Document ---
:1950 External Reference #:[id number] Author Name Crystal Levin M.D. (transmitted by agent of provider Elvie Chow) Address [address] [facility] [place] [address] Care Team Providers Name Role Phone Tiffanie Godinez MD - Care Team Information Chicken Cutter [phone] Family Medicine Problems Active Problems Provider Date Periodic limb movement disorder Terrie Loo DNP, RN, MOLD YARD SUPERVISOR-BC Onset: 10/17 Obstructive sleep apnea of adult Terrie Loo DNP, RN, MOLD YARD SUPERVISOR-BC Onset: 10/2011 Spinal stenosis of lumbar region Edgardo Samuel M.D. Onset: 09/15/2016 Localized, primary osteoarthritis Crystal Levin M.D. Onset: 01/04/2018 Arthroplasty of knee Crystal Levin M.D. Onset: 02/20/2018 Obstructive sleep apnea syndrome Terrie Loo DNP, RN, MOLD YARD SUPERVISOR-BC Onset: Note: Severe Social History Type Date Description Comments Sex Unknown Tobacco Use Start: Unknown Never Smoked Cigarettes Smoking Status Reviewed: 10/08/19 Never Smoked Cigarettes ETOH Use Rarely consumes alcohol Tobacco Use Start: Unknown Patient has never smoked Recreational Drug Use Denies Drug Use Exercise Type/Frequency Does not exercise Allergies, Adverse Reactions, Alerts Description No Known Drug Allergies Medications Active Medications SIG Qnty Indications Ordering Date Provider Methotrexate take 7 90tabs Sameer Duckworth, 06/20/2019 [...] mouth every 90tabs Unknown 100mg day Tablets Ibuprofen 2 tabs by mouth 30tabs Unknown 200mg Tablets every 4 to 6 hours as needed Levothyroxine Sodium 1 by mouth every 90tabs Unknown day 200mcg Tablets Ropinirole HCL 4 tabs by mouth Unknown 1mg in thee evening. Tablets Flonase Allergy spray 1 spray in Unknown Relief each nostril 50mcg/Act twice daily Suspension Omeprazole 1 by mouth every Unknown 20mg day Capsules DR Roman 45 mg initially Unknown 45mg/0.5ML and 4 weeks Solution later, followed by 45 mg every 12 weeks Doxycycline Hyclate pt taking a 7 day Unknown course History Medications Tramadol HCL 1-2 tablets by 20tabs Jaciel Stevenson, 08/02/2019 - 50mg mouth every 6 MD 08/03/2019 Tablets hours as needed pain Voltaren apply 2 grams 200units Sameer Duckworth, 07/13/2019 - 1% Gel twice daily as M.D. 10/07/2019 needed for pain to the right knee bursae Medications Administered in Office Medication SIG Qnty Indications Ordering Provider Date Triamcinolone (Kenalog) Sameer Duckworth M.D. 07/13/2019 Injection Immunizations Description No Information Available Vital Signs Date Vital Result Comment 10/08/2019 1:45pm Height 61 inches 5'1" Weight 211.75 lb Heart Rate 72 /min BP Systolic 136 mmHg BP Diastolic 82 mmHg Respiratory Rate 16 /min Body Temperature 97.7 F Pain Level 7 BMI (Body Mass Index) 40.0 kg/m2 09/10/2019 11:07am Height 60 inches 5'0" Weight 215.00 lb Heart Rate 84 /min BP Systolic 140 mmHg BP Diastolic 72 mmHg O2 % BldC Oximetry 96 % BMI (Body Mass Index) 42.0 kg/m2 Results Test Acquired Date Facility Test Result H/L Range Note Laboratory test 08/13/2019 [facility] Cancer Ag (CA 10 U/mL < 46 [address] [place] [address] [phone] Carcinoembryonic Antigen Cea 1.9 ng/mL Normal 0.1-5.0 2 Laboratory test 08/13/2019 [facility] Erythrocyte Sed 10 mm/Hr Normal 0-[address] [place] [address] [phone] C Reactive Protein 2.20 mg/L Normal <8.01 Aldolase 7.1 U/L <7.7 3 CBC Auto 08/13/2019 [facility] White Blood 5.8 10^3/uL Normal 3.5-10.[address] [place] [address] [phone] Red Blood Count 4.77 10^6/uL Normal 3.70-4.87 [...] Blood Cells % 0.0 Comp Metabolic 08/13/2019 [facility] Sodium 141 mmol/L Normal 135-[address] [place] [address] [phone] Potassium 4.4 mmol/L Normal 3.5-5.0 Chloride 105 [...] >60 Egfr 78.3 >60 4 Surgical 08/02/2019 [facility] Surgical SEE RESULT 5, [address] [place] [address] [phone] PDFReport [id number] <SEE NOTE> Connective Tissue 06/20/2019 [facility] Anti-Nuclear Antibody 0.6 U [address] [place] [address] [phone] Cyclic Citrullinated Peptide <15.6 U 8 Interpretation See Comment 9 Laboratory test 06/20/2019 [facility] Erythrocyte Sed 8 mm/Hr Normal 0-[address] [place] [address] [phone] C Reactive Protein 2.70 mg/L Normal <8.01 Aldolase 5.8 U/L <7.7 10 Comp Metabolic 06/20/2019 [facility] Sodium 142 mmol/L Normal 135-[address] [place] [address] [phone] Potassium 4.1 mmol/L Normal 3.5-5.0 Chloride 106 [...] Egfr 71.9 >60 11 Hepatitis Acute 06/20/2019 [facility] Hepatitis A AB Negative Negative Panel [address] [place] [address] [phone] Hepatitis B Core AB Igm Nonreactive Nonreactive Hepatitis B Surface Ag Negative Negative Hepatitis C Antibody 06/20/2019 [facility] HCV Index 0.01 s/c [address] [place], [place] [id number] [phone] Hepatitis C Antibody Negative Negative Laboratory test 06/20/2019 [facility] Angiotensin 53 U/L 16 - 85 [address] [place] [address] Enzyme [phone] Anca AB Ser If 06/20/2019 [facility] C-Anca Negative Negative [address] [place] [address] [phone] P-Anca Negative Negative 13 CBC Auto 06/20/2019 [facility] White Blood 5.1 10^3/uL Normal 3.5-10.[address] [place] [address] [phone] Red Blood Count 4.77 10^6/uL Normal 3.70-4.87 [...] Blood Cells % 0.1 Laboratory test 06/20/2019 [facility] Thyroperoxidase AB 0.99 Normal <[address] IU/[place] [address] [phone] Free T4 (Free Thyroxine) 0.98 ng/dL Normal [...] absence of malignant disease. Test Performed by: [facility] [address] [place] [address] Surgical Forceps Fabricator: Shane Devlin M.D. Ph.D.; CLIA# [id number] 2 Nonsmokers: < 2.9 ng/mL Some smokers may have elevated CEA, usually <5.0 ng/mL. Serum markers are not specific for malignancy, and values may vary by method. The testing method is an immunoenzymatic assay repairer switchgear by [employer] performed on Jordon Tristen DXI 600. Do not interpret serum CEA levels as absolute evidence of the presence or the absence of malignant disease. Use serum CEA in conjunction with information from the clinical evaluation of the patient and other diagnostic procedures. 3 Test Performed by: [facility] [place] [id number] Surgical Forceps Fabricator: Shane Devlin M.D. Ph.D.; CLIA# [id number] 4 Because ethnic data is not always [...] 5 Kidney failure <15 (or dialysis) 5 [id number] 6 SEE RESULT BELOW Name: JEANNA STAPLES Jerod : [address]: Jaciel Stevenson MD Acct: [id number] Unit: [id number] AGE: 69 Location: [facility] Re08/02/19 SEX: F [place] [facility] [place]C: [id number] IMELDA: 08/02/[address] [facility] [address]: Jaciel Stevenson MD REQ: [id number] RECD: 08/02/19 STATUS: SOUT _ ORDERED: LEVEL 3 COMMENTS: [id number] FINAL DIAGNOSIS Wrist, left, excision: -- Ganglion [...] 1301 END OF REPORT DEPARTMENT OF PATHOLOGY, [address] [place] [address] Elbert Briones M.D. Director [facility] # [id number] 7 REFERENCE VALUE <=1.0 (Negative) 8 REFERENCE VALUE <20.0 (Negative) 9 Tests for antibodies to dsDNA and VERENICE antigens are not performed automatically unless the VIJAYA result is > or = 3.0 U. Studies performed at [facility] indicate that positive VIJAYA results <3.0 U are rarely accompanied by positive second order tests. Test Performed by: [facility] [employer] [address] [place] [address] Surgical Forceps Fabricator: Shane Devlin M.D. Ph.D.; CLIA# [id number] 10 Test Performed by: [facility] - [address] [address] Surgical Forceps Fabricator: Shane Devlin M.D. Ph.D.; CLIA# [id number] 11 Because ethnic data is not always [...] <15 (or dialysis) 12 Test Performed by: [place] [address] Surgical Forceps Fabricator: Shane Devlin M.D. Ph.D.; CLIA# [id number] 13 Negative for cANCA and pANCA patterns by immunofluorescence. ADDITIONAL INFORMATION This test was developed and its performance characteristics determined by [facility] in a manner consistent with CLIA requirements. This test has not been cleared or approved by the U.S. Food and Drug Administration. Test Performed by: [facility] [address] [place] [id number] Surgical Forceps Fabricator: Shane Devlin M.D. Ph.D.; CLIA# [id number] 14 Test Result Flag Unit RefValue MyoMarker Panel 3 Plus Anti-Patricia-1 Ab <20 Units <20 PL-[address]12 Negative Negative EJ Negative Negative OJ Negative Negative SRP Negative Negative MS-2 Negative Negative Fibrillarin (U3 PE ELECTRICAL ENGINEER) Negative Negative MDA-5 (P140)(CADM-140) <20 Units <20 NXP-2 (P140) <20 Units <20 TIF1 GAMMA (P155/140) <20 Units <20 Anti-PM/Scl-100 Ab <20 Units <20 U2 snRNP Negative Negative Anti-U1-PE ELECTRICAL ENGINEER Ab <20 Units <20 Ku Negative Negative [...] Test Performed by: [facility] [address] [place] [address] Procedures Date Code Description Status 08/29/2019 03724 Nerve Conduction 05-06 Studies Completed 08/29/2019 79440 Needle Electromyography Complete, Five Or More Muscles Completed Studied 08/02/2019 71230 Excision Ganglion Wrist/ Dorsal Or Volar; Primary Completed 08/02/2019 49431 Excision Ganglion Wrist/ Dorsal Or Volar; Primary Completed 07/13/2019 94203 Inject/Drain Joint/Bursa Major W/O US Completed Medical Devices Description No Information Available Encounters Type Date Location Provider Dx Diagnosis Office Visit 09/10/2019 Pulmonology And Terrie G47.33 Obstructive sleep 11:15a [facility] Loo, RN, apnea (adult) Pilot Control Operator Helper MOLD YARD SUPERVISOR-BC (pediatric) Office Visit 09/07/2019 Rheumatology Sameer Duckworth 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 dermatomyositis without myopathy Z79.899 Other fci (current) drug therapy R06.00 Dyspnea, unspecified G47.61 Periodic limb movement disorder M67.449 Ganglion, unspecified hand L40.50 Arthropathic psoriasis, unspecified Assessments Date Code Description Provider 10/08/2019 M25.561 Pain in right knee Crystal Levin M.D. 10/08/2019 M25.461 Effusion, right knee Crystal Levin M.D. 10/08/2019 M17.11 Unilateral primary osteoarthritis, Crystal Levin M.D. 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 myopathy 09/07/2019 M70.51 Other bursitis of knee, right knee Sameer Duckworth M.D. 09/07/2019 L40.50 Arthropathic psoriasis, unspecified Sameer Duckworth M.D. 09/07/2019 Z79.899 Other fci (current) drug Sameer Duckworth M.D. therapy 08/29/2019 R20.8 Other disturbances of skin sensation Dahiana Hernández M.D. 08/14/2019 R22.32 Localized swelling, mass and lump, Jaciel Stevenson MD left upper limb 08/14/2019 M67.432 Ganglion, left wrist Jaciel Stevenson MD 08/14/2019 Z47.89 Encounter for other orthopedic Jaciel Stevenson MD aftercare 08/13/2019 L40.50 Arthropathic psoriasis, unspecified Sameer Duckworth M.D. 08/13/2019 M70.51 Other bursitis of knee, right knee Sameer Duckworth M.D. 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 myopathy 08/13/2019 Z79.899 Other fci (current) drug Sameer Duckworth M.D. therapy 08/02/2019 [...] Sameer Duckworth M.D. myopathy 07/13/2019 Z79.899 Other fci (current) drug Sameer Duckworth M.D. 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 myopathy 06/20/2019 Z79.899 Other fci (current) drug Sameer Duckworth M.D. therapy 06/20/2019 R06.00 Dyspnea, unspecified Sameer Duckworth M.D. 06/20/2019 G47.61 Periodic limb movement disorder Sameer Duckworth M.D. 06/20/2019 M67.449 Ganglion, unspecified hand Sameer Duckworth M.D. 06/20/2019 L40.50 Arthropathic psoriasis, unspecified Sameer Duckworth M.D. Plan of Treatment Future Appointment(s):09/16/2020 11:15 am - Terrie Loo DNP, RN, MOLD YARD SUPERVISOR-BC at [facility]12/10/2019 11:00 am - Sameer Duckworth M.D. at [facility]10/08/2019 - Crystal Levin M.D.M25.561 Pain in right kneeFollow up:Follow up: 7-10 days before bagazhvE02.461 Effusion, right kneeM17.11 Unilateral primary osteoarthritis, right knee Functional Status Description No Information Available Mental Status Description No Information Available Referrals Refer to Dr Reason for Referral Status Appt Date Crystal Levin M.D. Please evaluate patient with severe Sent 10/08/2019 osteoarthritis and a torn meniscus, confirmed on MRI [facility] [place] [address] [phone] Isa Bunch M.D. Please consider ganglion cyst removal Scheduled [address] [address] [phone]
--- OUTSIDE RECORDS SUMMARY | 2019-10-09 11:04 | XMS REPORT | Continuity of Care Document ---
:1950 External Reference #:[id number] Author Name Jaciel Stevenson MD (transmitted by agent of provider Martin Baron) Address [address] [place] [id number] Care Team Providers Name Role Phone Tiffanie Godinez MD - Care Team Information [facility] Family Medicine Problems Active Problems Provider Date Periodic limb movement disorder Terrie Loo DNP, RN, SOILS ENGINEER-BC Onset: 10/17 Obstructive sleep apnea of adult Terrie Loo DNP, RN, SOILS ENGINEER-BC Onset: 10/2011 Spinal stenosis of lumbar region Edgardo Samuel M.D. Onset: 09/15/2016 Localized, primary osteoarthritis Crystal Levin M.D. Onset: 01/04/2018 Arthroplasty of knee Crystal Levin M.D. Onset: 02/20/2018 Social History Type Date Description Comments Sex Unknown Tobacco Use Start: Unknown Never Smoked Cigarettes Smoking Status Reviewed: 08/14/19 Never Smoked Cigarettes ETOH Use Rarely consumes [...] Available Vital Signs Date Vital Result Comment 08/14/2019 10:56am Height 60 inches 5'0" Heart Rate 97 /min BP Systolic 142 mmHg BP Diastolic 80 mmHg Respiratory Rate 18 /min Pain Level 0 08/13/2019 11:29am Height 60 inches 5'0" Heart Rate 72 /min BP Systolic Sitting 138 mmHg BP Diastolic Sitting 84 mmHg Respiratory Rate 16 /min Body Temperature 98.0 F Pain Level 7 Results Test Date Facility Test Result H/L Range Note Laboratory test 08/13/2019 [facility] Erythrocyte Sed 10 mm/Hr Normal 0-[address] [place] [address] [phone] C Reactive Protein 2.20 mg/L Normal <8.01 Aldolase <pending> CBC Auto 08/13/2019 [facility] White Blood 5.8 10^3/uL Normal 3.5-10.[address] [place] [address] [phone] Red Blood Count 4.77 10^6/uL Normal 3.70-4.87 [...] Blood Cells % 0.0 Comp Metabolic 08/13/2019 [facility] Sodium 141 mmol/L Normal 135-[address] [place] [address] [phone] Potassium 4.4 mmol/L Normal 3.5-5.0 Chloride 105 [...] Egfr Non- 64.7 >60 Egfr 78.3 >60 1 Laboratory test 08/13/2019 [facility] Cancer Ag (CA <pending> finding [address] [place] [address] [phone] Carcinoembryonic Antigen Cea 1.9 ng/mL Normal 0.1-5.0 2 Surgical 08/02/2019 [facility] Surgical SEE RESULT 3, [address] [place] [address] [phone] PDFReport [id number] <SEE NOTE> Laboratory test 06/20/2019 [facility] Thyroperoxidase AB 0.99 Normal <[address] IU/[place] [address] [phone] Free T4 (Free Thyroxine) 0.98 ng/dL Normal 0.61-1.12 Miscellaneous Test See Comment 5 CBC Auto 06/20/2019 [facility] White Blood 5.1 10^3/uL Normal 3.5-10.[address] [place] [address] [phone] Red Blood Count 4.77 10^6/uL Normal 3.70-4.87 [...] % Nucleated Red Blood Cells % 0.1 Anca AB Ser If 06/20/2019 [facility] C-Anca Negative Negative [address] [place] [address] [phone] P-Anca Negative Negative 6 Laboratory test 06/20/2019 [facility] Angiotensin 53 U/L 16 - 85 [address] [place] [place] [address] [phone] Hepatitis C 06/20/2019 [facility] HCV Index 0.01 s/c Antibody [address] [place] [address] [phone] Hepatitis C Antibody Negative Negative Hepatitis Acute 06/20/2019 [facility] Hepatitis A AB Negative Negative Panel [address] [place] [address] [phone] Hepatitis B Core AB Igm Nonreactive Nonreactive Hepatitis B Surface Ag Negative Negative Comp Metabolic 06/20/2019 [facility] Sodium 142 mmol/L Normal 135-[address] [place] [address] [phone] Potassium 4.1 mmol/L Normal 3.5-5.0 Chloride 106 [...] Egfr Non- 59.4 >60 Egfr 71.9 >60 8 Laboratory test 06/20/2019 [facility] Erythrocyte Sed 8 mm/Hr Normal 0-[address] [place] [address] [phone] C Reactive Protein 2.70 mg/L Normal <8.01 Aldolase 5.8 U/L <7.7 9 Connective Tissue 06/20/2019 [facility] Anti-Nuclear 0.6 U [address] [place] [address] [phone] Cyclic Citrullinated Peptide <15.6 U 11 Interpretation See Comment 12 1 Because ethnic data is not always [...] 5 Kidney failure <15 (or dialysis) 2 Nonsmokers: < 2.9 ng/mL Some smokers may have elevated CEA, usually <5.0 ng/mL. Serum markers are not specific for malignancy, and values may vary by method. The testing method is an immunoenzymatic assay in school suspension coordinator by [employer] performed on [employer] DXI 600. Do not interpret serum CEA levels as absolute evidence of the presence or the absence of malignant disease. Use serum CEA in conjunction with information from the clinical evaluation of the patient and other diagnostic procedures. 3 [id number] 4 SEE RESULT BELOW Name: JEANNA STAPLES : [address]: Jaciel Stevenson MD Acct: [id number] Unit: [id number] AGE: 69 Location: [facility] Re08/02/19 SEX: F [place] [facility] [place]C: [id number] IMELDA: 08/02/[address] [facility] [address]: Jaciel Stevenson MD REQ: [id number] RECD: 08/02/19 STATUS: SOUT _ ORDERED: LEVEL 3 COMMENTS: [id number] FINAL DIAGNOSIS Wrist, left, excision: -- Ganglion [...] and Reported on: Vanessa Hendricks MD 08/03/19 130 END OF REPORT DEPARTMENT OF PATHOLOGY, [address] [place] [address] Elbert Briones M.D. Director MARY ANN # [id number] 5 Test Result Flag Unit RefValue MyoMarker Panel 3 Plus Anti-Patricia-1 Ab <20 Units <20 PL-[address]-12 Negative Negative EJ Negative Negative OJ Negative Negative SRP Negative Negative WY-2 Negative Negative Fibrillarin (U3 MELTER SUPERVISOR ELECTRIC ARC FURNACE) Negative Negative MDA-5 (P140)(CADM-140) <20 Units <20 NXP-2 (P140) <20 Units <20 TIF1 GAMMA (P155/140) <20 Units <20 Anti-PM/Scl-100 Ab <20 Units <20 U2 snRNP Negative Negative Anti-U1-MELTER SUPERVISOR ELECTRIC ARC FURNACE Ab <20 Units <20 Ku Negative Negative Anti-SS-A 52 kD Ab, IgG <20 Units <20 ADDITIONAL INFORMATION EIA Interpretation: Negative <20 Units Weak Positive 20-39 Units Moderate Positive 40-80 Units Strong Positive >80 Units This panel was developed and its performance characteristics validated by [facility]. There is no FDA approved assay for [...] developed and its performance characteristics validated by [facility]. There is no FDA approved assay for the above tests. As a lab developed test (LDT), approval or clearance by the FDA is not required. This test may be used for clinical purposes and should not be regarded as investigational or for research. Test Performed by: [facility] [address] [place] [address] 6 Negative for cANCA and pANCA patterns by immunofluorescence. ADDITIONAL INFORMATION This test was developed and its performance characteristics determined by [facility] in a manner consistent with CLIA requirements. This test has not been cleared or approved by the U.S. Food and Drug Administration. Test Performed by: [facility] [address] [place] [address] Truck Car And Bus Cleaner: Shane Devlin M.D. Ph.D.; CLIA# [id number] 7 Test Performed by: [facility] [place] [id number] [employer] Car [employer] Cleaner: Shane Devlin M.D. Ph.D.; CLIA# [id number] 8 Because ethnic data is not always readily [...] 15-29 5 Kidney failure <15 (or dialysis) 9 Test Performed by: [facility] - [address] [address] Truck Car And Bus Cleaner: Shane Devlin M.D. Ph.D.; CLIA# [id number] 10 REFERENCE VALUE <=1.0 (Negative) 11 REFERENCE VALUE <20.0 (Negative) 12 Tests for antibodies to dsDNA and VERENICE antigens are not performed automatically unless the VIJAYA result is > or = 3.0 U. Studies performed at [facility] indicate that positive VIJAYA results <3.0 U are rarely accompanied by positive second order tests. Test Performed by: [facility] [address] [place] [address] Truck Car And Bus Cleaner: Shane Devlin M.D. 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 dermatomyositis without myopathy Z79.899 Other ferry terminal supervisor (current) drug therapy R06.00 Dyspnea, unspecified G47.61 Periodic limb movement disorder M67.449 Ganglion, unspecified hand L40.50 Arthropathic psoriasis, unspecified Assessments Date Code Description Provider 08/14/2019 R22.32 Localized swelling, mass and lump, left upper Jaciel Stevenson MD limb 08/14/2019 M67.432 Ganglion, left wrist Jaciel Stevenson MD 08/13/2019 L40.50 Arthropathic psoriasis, unspecified Sameer Duckworth M.D. 08/13/2019 M70.51 Other bursitis of knee, right knee Sameer Duckworth M.D. 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 08/13/2019 Z79.899 Other senior living (current) drug therapy Sameer Duckworth M.D. 08/02/2019 R22.32 Localized swelling, mass and lump, left upper Stuart Ipson, PA limb 08/02/2019 M67.432 Ganglion, left wrist Stuart Jaxon, PA 08/02/2019 R22.32 Localized swelling, mass and lump, left upper Jaciel Stevenson MD limb 08/02/2019 M67.432 Ganglion, left wrist Jaciel Stevenson MD 07/13/2019 L40.50 Arthropathic psoriasis, unspecified Sameer Duckworth M.D. 07/13/2019 M70.51 Other bursitis of knee, right knee Sameer Duckworth M.D. 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 07/13/2019 Z79.899 Other ferry terminal supervisor (current) drug therapy Sameer Duckworth M.D. 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 06/20/2019 Z79.899 Other senior living (current) drug therapy Sameer Duckworth M.D. 06/20/2019 R06.00 Dyspnea, unspecified Sameer Duckworth M.D. 06/20/2019 G47.61 Periodic limb movement disorder Sameer Duckwotrh M.D. 06/20/2019 M67.449 Ganglion, unspecified hand Sameer Duckworth M.D. 06/20/2019 L40.50 Arthropathic psoriasis, unspecified Sameer Duckworth M.D. Plan of Treatment Future Appointment(s):09/18/2019 1:15 pm - Jaciel Stevenson MD at [facility] at Dohygb1009/07/2019 12:40 pm - Sameer Duckworth M.D. at [facility]09/10/2019 11:15 am - Terrie Loo DNP, RN, SOILS ENGINEER-BC at [facility]08/14/2019 - Jaciel Stevenson, MDR22.32 Localized swelling, mass and lump, left upper limbFollow up:Follow up: 4 ngzkvW63.432 Ganglion, left wrist Functional Status Description No Information Available Mental Status Description No Information Available Referrals Refer to Reason for Referral Status Appt Date Isa Bunch M.D. Please consider ganglion cyst removal Scheduled wrist [address] [place] [address] [phone]
--- OUTSIDE RECORDS SUMMARY | 2019-10-09 11:04 | XMS REPORT | Continuity of Care Document ---
:1950 External Reference #:[id number] Author Name Sameer Duckworth M.D. (transmitted by agent of provider Sabra Emanuel) Address [address] [place] [address] Care Team Providers Name Role Phone Tiffanie Godinez MD - Care Team Information Content Assistant Family Medicine Problems Active Problems Provider Date Periodic limb movement disorder Terrie Loo DNP, RN, MANUAL CONTROL AUGER PRESS OPERATOR-BC Onset: 10/17 Obstructive sleep apnea of adult Terrie Loo DNP RN, MANUAL CONTROL AUGER PRESS OPERATOR-BC Onset: 10/2011 Spinal stenosis of lumbar region Edgardo Samuel M.D. Onset: 09/15/2016 Localized, primary osteoarthritis Crystal Levin M.D. Onset: 01/04/2018 Arthroplasty of knee Crystal Levin M.D. Onset: 02/20/2018 Social History Type Date Description Comments Sex Unknown Tobacco Use Start: Unknown Never Smoked Cigarettes Smoking Status Reviewed: 08/13/19 Never Smoked Cigarettes ETOH Use Rarely consumes [...] Available Vital Signs Date Vital Result Comment 08/13/2019 11:29am Height 60 inches 5'0" Heart Rate 72 /min BP Systolic Sitting 138 mmHg BP Diastolic Sitting 84 mmHg Respiratory Rate 16 /min Body Temperature 98.0 F Pain Level 7 07/13/2019 1:29pm Height 60 inches 5'0" Weight 215.50 lb Heart Rate 72 /min BP Systolic Sitting 128 mmHg BP Diastolic Sitting 80 mmHg Pain Level 8 O2 % BldC Oximetry 98 % BMI (Body Mass Index) 42.1 kg/m2 Results Test Date Facility Test Result H/L Range Note Surgical 08/02/2019 [facility] Surgical SEE RESULT 1, [address] [place] [address] [phone] PDFReport [id number] <SEE NOTE> Connective Tissue 06/20/2019 [facility] Anti-Nuclear Antibody 0.6 U [address] [place] [address] [phone] Cyclic Citrullinated Peptide <15.6 U 4 Interpretation See Comment 5 Laboratory test 06/20/2019 [facility] Erythrocyte Sed 8 mm/Hr Normal 0-[address] [place] [address] [phone] C Reactive Protein 2.70 mg/L Normal <8.01 Aldolase 5.8 U/L <7.7 6 Comp Metabolic 06/20/2019 [facility] Sodium 142 mmol/L Normal 135-[address] [place] [address] [phone] Potassium 4.1 mmol/L Normal 3.5-5.0 Chloride 106 [...] Egfr Non- 59.4 >60 Egfr 71.9 >60 7 Hepatitis Acute 06/20/2019 [facility] Hepatitis A AB Negative Negative Panel [address] [place] [address] [phone] Hepatitis B Core AB Igm Nonreactive Nonreactive Hepatitis B Surface Ag Negative Negative Hepatitis C Antibody 06/20/2019 [facility] HCV Index 0.01 s/c [address] [place] [address] [phone] Hepatitis C Antibody Negative Negative Laboratory test 06/20/2019 [facility] Angiotensin 53 U/L 16 - 85 [address] [place] [address] Enzyme [phone] Anca AB Ser If 06/20/2019 [facility] C-Anca Negative Negative [address] [place] [address] [phone] P-Anca Negative Negative 9 CBC Auto 06/20/2019 [facility] White Blood 5.1 10^3/uL Normal 3.5-10.[address] [place] [address] [phone] Red Blood Count 4.77 10^6/uL Normal 3.70-4.87 [...] Blood Cells % 0.1 Laboratory test 06/20/2019 [facility] Thyroperoxidase AB 0.99 Normal <[address] IU/[place] [address] [phone] Free T4 (Free Thyroxine) 0.98 ng/dL Normal 0.61-1.12 Miscellaneous Test See Comment 10 1 [id number] 2 SEE RESULT BELOW Name: JEANNA STAPLES : [address]: Jaciel Stevenson MD Acct: [id number] Unit: [id number] AGE: 69 Location: [facility] Re08/02/19 SEX: F Status: REG [facility] [place] SPEC: [id number] IMELDA: 08/02/19 [facility] DR: Jaciel Stevenson MD REQ: [id number] RECD: 08/02/19 STATUS: SOUT _ ORDERED: LEVEL 3 COMMENTS: [id number] FINAL DIAGNOSIS Wrist, left, excision: -- Ganglion [...] 1301 END OF REPORT DEPARTMENT OF PATHOLOGY, [address] [place] [address] Elbert Briones M.D. Director MARY ANN # [id number] 3 REFERENCE VALUE <=1.0 (Negative) 4 REFERENCE VALUE <20.0 (Negative) 5 Tests for antibodies to dsDNA and VERENICE antigens are not performed automatically unless the VIJAYA result is > or = 3.0 U. Studies performed at [facility] indicate that positive VIJAYA results <3.0 U are rarely accompanied by positive second order tests. Test Performed by: [facility] [address] [place] [address] Thread Puller: Shane Devlin M.D. Ph.D.; CLIA# [id number] 6 Test Performed by: [place] [address] Thread Puller: Shane Devlin M.D. Ph.D.; CLIA# [id number] 7 Because ethnic data is not always readily [...] 15-29 5 Kidney failure <15 (or dialysis) 8 Test Performed by: [place] [address] Thread Puller: Shane Devlin M.D. Ph.D.; CLIA# [id number] 9 Negative for cANCA and pANCA patterns by immunofluorescence. ADDITIONAL INFORMATION This test was developed and its performance characteristics determined by [facility] in a manner consistent with CLIA requirements. This test has not been cleared or approved by the U.S. Food and Drug Administration. Test Performed by: [facility] [address] [place] [address] Thread Puller: Shane Devlin M.D. Ph.D.; CLIA# [id number] 10 Test Result Flag Unit RefValue MyoMarker Panel 3 Plus Anti-Patricia-1 Ab <20 Units <20 PL-[address]-12 Negative Negative EJ Negative Negative OJ Negative Negative SRP Negative Negative SC-2 Negative Negative Fibrillarin (U3 CORN POPPER) Negative Negative MDA-5 (P140)(CADM-140) <20 Units <20 NXP-2 (P140) <20 Units <20 TIF1 GAMMA (P155/140) <20 Units <20 Anti-PM/Scl-100 Ab <20 Units <20 U2 snRNP Negative Negative Anti-U1-CORN POPPER Ab <20 Units <20 Ku Negative Negative Anti-SS-A 52 kD Ab, IgG <20 Units <20 ADDITIONAL INFORMATION EIA Interpretation: Negative <20 Units Weak Positive 20-39 Units Moderate Positive 40-80 Units Strong Positive >80 Units This panel was developed and its performance characteristics validated by [facility]. There is no FDA approved assay for [...] investigational or for research. Test Performed by: [facility] 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 dermatomyositis without myopathy Z79.899 Other prison (current) drug therapy R06.00 Dyspnea, unspecified G47.61 Periodic limb movement disorder M67.449 Ganglion, unspecified hand L40.50 Arthropathic psoriasis, unspecified Assessments Date Code Description Provider 08/13/2019 L40.50 Arthropathic psoriasis, unspecified Sameer Duckworth M.D. 08/13/2019 M70.51 Other bursitis of knee, right knee Sameer Duckworth M.D. 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 08/13/2019 Z79.899 Other prison (current) drug therapy Sameer Duckworth M.D. 08/02/2019 R22.32 Localized swelling, mass and lump, left upper Stuart Jaxon, PA limb 08/02/2019 M67.432 Ganglion, left wrist Stuartsusana Coates, PA 08/02/2019 R22.32 Localized swelling, mass and lump, left upper Jaciel Stevenson MD limb 08/02/2019 M67.432 Ganglion, left wrist Jaciel Stevenson MD 07/13/2019 L40.50 Arthropathic psoriasis, unspecified Sameer Duckworth M.D. 07/13/2019 M70.51 Other bursitis of knee, right knee Sameer Duckworth M.D. 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 07/13/2019 Z79.899 Other long term care social worker (current) drug therapy Sameer Duckworth M.D. 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 06/20/2019 Z79.899 Other long term care social worker (current) drug therapy Sameer Duckworth M.D. 06/20/2019 R06.00 Dyspnea, unspecified Sameer Duckworth M.D. 06/20/2019 G47.61 Periodic limb movement disorder Sameer Duckworth M.D. 06/20/2019 M67.449 Ganglion, unspecified hand Sameer Duckworth M.D. 06/20/2019 L40.50 Arthropathic psoriasis, unspecified Sameer Duckworth M.D. Plan of Treatment Future Appointment(s):09/07/2019 12:40 pm - Smaeer Duckworth M.D. at [facility]08/14/2019 10:15 am - Jaciel Stevenson MD at [facility] at Dzdyri6509/10/2019 11:15 am - Terrie Loo DNP, RN, MANUAL CONTROL AUGER PRESS OPERATOR-BC at [facility]08/13/2019 - Sameer Duckworth M.D.L40.50 Arthropathic psoriasis, unspecifiedFollow up:Follow up in 3 to 4 weeks for SYnvisc ONeM70.51 Other bursitis of knee, right kneeM33.13 Other dermatomyositis without yogmewtkE92.899 Other prison (current) drug therapy Functional Status Description No Information Available Mental Status Description No Information Available Referrals Refer to Reason for Referral Status Appt Date Isa Bunch M.D. Please consider ganglion [place] [address] [phone]
--- OUTSIDE RECORDS SUMMARY | 2019-10-09 11:04 | XMS REPORT | Continuity of Care Document ---
:1950 External Reference #:[id number] Author Name Sameer Duckworth M.D. (transmitted by agent of provider Sabra Emanuel) Address [address] [place] [address] Care Team Providers Name Role Phone Tiffanie Godinez MD - Care Team Information [facility] Problems Active Problems Provider Date Periodic limb movement disorder Terrie Loo DNP, RN, WEAVING SUPERVISOR-BC Onset: 10/17 Obstructive sleep apnea of adult Terrie Loo DNP RN, WEAVING SUPERVISOR-BC Onset: 10/2011 Spinal stenosis of lumbar region Edgardo Samuel M.D. Onset: 09/15/2016 Localized, primary osteoarthritis Crystal Levin M.D. Onset: 01/04/2018 Arthroplasty of knee Crystal Levin M.D. Onset: 02/20/2018 Obstructive sleep apnea syndrome Terrie Loo DNP, RN, WEAVING SUPERVISOR-BC Onset: Note: Severe Social History Type Date Description Comments Sex Unknown Tobacco Use Start: Unknown Never Smoked Cigarettes Smoking Status Reviewed: 09/07/19 Never Smoked Cigarettes ETOH Use Rarely consumes [...] Available Vital Signs Date Vital Result Comment 09/07/2019 1:19pm Height 60 inches 5'0" Weight 215.00 lb Heart Rate 73 /min BP Systolic Sitting 138 mmHg BP Diastolic Sitting 82 mmHg Body Temperature 97.9 F Pain Level 6 O2 % BldC Oximetry 97 % BMI (Body Mass Index) 42.0 kg/m2 08/14/2019 10:56am Height 60 inches 5'0" Heart Rate 97 /min BP Systolic 142 mmHg BP Diastolic 80 mmHg Respiratory Rate 18 /min Pain Level 0 Results Test Acquired Date Facility Test Result H/L Range Note Laboratory test 08/13/2019 [facility] Cancer Ag (CA 10 U/mL < 46 [address] [place] [address] [phone] Carcinoembryonic Antigen Cea 1.9 ng/mL Normal 0.1-5.0 2 Laboratory test 08/13/2019 [facility] Erythrocyte Sed 10 mm/Hr Normal 0-[address] [place] [address] [phone] C Reactive Protein 2.20 mg/L Normal <8.01 Aldolase 7.1 U/L <7.7 3 CBC Auto 08/13/2019 [facility] White Blood 5.8 10^3/uL Normal 3.5-10.[address] [place] [address] [phone] Red Blood Count 4.77 10^6/uL Normal 3.70-4.87 [...] Blood Cells % 0.0 Comp Metabolic 08/13/2019 [facility] Sodium 141 mmol/L Normal 135-[address] [place] [address] [phone] Potassium 4.4 mmol/L Normal 3.5-5.0 Chloride 105 [...] >60 Egfr 78.3 >60 4 Surgical 08/02/2019 [facility] Surgical SEE RESULT 5, [address] [place] [address] [phone] PDFReport [id number] <SEE NOTE> Connective Tissue 06/20/2019 [facility] Anti-Nuclear Antibody 0.6 U [address] [place] [address] [phone] Cyclic Citrullinated Peptide <15.6 U 8 Interpretation See Comment 9 Laboratory test 06/20/2019 [facility] Erythrocyte Sed 8 mm/Hr Normal 0-[address] [place] [address] [phone] C Reactive Protein 2.70 mg/L Normal <8.01 Aldolase 5.8 U/L <7.7 10 Comp Metabolic 06/20/2019 [facility] Sodium 142 mmol/L Normal 135-[address] [place] [address] [phone] Potassium 4.1 mmol/L Normal 3.5-5.0 Chloride 106 [...] Egfr 71.9 >60 11 Hepatitis Acute 06/20/2019 [facility] Hepatitis A AB Negative Negative Panel [address] [place] [address] [phone] Hepatitis B Core AB Igm Nonreactive Nonreactive Hepatitis B Surface Ag Negative Negative Hepatitis C Antibody 06/20/2019 [facility] HCV Index 0.01 s/c [address] [place] [address] [phone] Hepatitis C Antibody Negative Negative Laboratory test 06/20/2019 [facility] Angiotensin 53 U/L 16 - [address] [place] [address] Enzyme [phone] Anca AB Ser If 06/20/2019 [facility] C-Anca Negative Negative [address] [place] [address] [phone] P-Anca Negative Negative 13 CBC Auto 06/20/2019 [facility] White Blood 5.1 10^3/uL Normal 3.5-10.[address] [place] [address] [phone] Red Blood Count 4.77 10^6/uL Normal 3.70-4.87 [...] Blood Cells % 0.1 Laboratory test 06/20/2019 [facility] Thyroperoxidase AB 0.99 Normal <[address] IU/[place] [address] [phone] Free T4 (Free Thyroxine) 0.98 ng/dL Normal [...] absence of malignant disease. Test Performed by: [facility] [address] [place] [address] Last Sawyer: Shane Devlin M.D. Ph.D.; CLIA# [id number] 2 Nonsmokers: < 2.9 ng/mL Some smokers may have elevated CEA, usually <5.0 ng/mL. Serum markers are not specific for malignancy, and values may vary by method. The testing method is an immunoenzymatic assay nfl player by [employer] performed on [employer] DXI 600. Do not interpret serum CEA levels as absolute evidence of the presence or the absence of malignant disease. Use serum CEA in conjunction with information from the clinical evaluation of the patient and other diagnostic procedures. 3 Test Performed by: [facility] [address] [place] [address] Last Sawyer: Shane Devlin M.D. Ph.D.; CLIA# [id number] 4 Because ethnic data is not always [...] 5 Kidney failure <15 (or dialysis) 5 [id number] SEE RESULT BELOW Name: JEANNA STAPLES Jerod : [address]: Jaciel Stevenson MD Acct: [id number] Unit: [id number] AGE: 69 Location: [facility] Re08/02/19 SEX: F [place] [facility] [place] SPEC: [id number] IMELDA: [birth year][address] [facility] [address]: Jaciel Stevenson MD REQ: [id number] RECD: 08/02/19 STATUS: SOUT _ ORDERED: LEVEL 3 COMMENTS: [id number] FINAL DIAGNOSIS Wrist, left, excision: -- Ganglion [...] 1301 END OF REPORT DEPARTMENT OF PATHOLOGY, [address] [place] [address] Elbert Briones M.D. Director MARY ANN # [id number] 7 REFERENCE VALUE <=1.0 (Negative) 8 REFERENCE VALUE <20.0 (Negative) 9 Tests for antibodies to dsDNA and VERENICE antigens are not performed automatically unless the VIJAYA result is > or = 3.0 U. Studies performed at [facility] indicate that positive VIJAYA results <3.0 U are rarely accompanied by positive second order tests. Test Performed by: [facility] [address] [place] [address] Last Sawyer: Shane Devlin M.D. Ph.D.; CLIA# [id number] 10 Test Performed by: [facility] - [address] [address] Last Sawyer: Shane Devlin M.D. Ph.D.; CLIA# [id number] 11 Because ethnic data is not always [...] <15 (or dialysis) 12 Test Performed by: [facility] [place] [address] Last Sawyer: Shane Devlin M.D. Ph.D.; CLIA# [id number] 13 Negative for cANCA and pANCA patterns by immunofluorescence. ADDITIONAL INFORMATION This test was developed and its performance characteristics determined by [facility] in a manner consistent with CLIA requirements. This test has not been cleared or approved by the U.S. Food and Drug Administration. Test Performed by: [facility] [address] [place] [id number] Last Sawyer: Shane Devlin M.D. Ph.D.; CLIA# [id number] 14 Test Result Flag Unit RefValue MyoMarker Panel 3 Plus Anti-Patricia-1 Ab <20 Units <20 PL-[address] Negative Negative EJ Negative Negative OJ Negative Negative SRP Negative Negative SC-2 Negative Negative Fibrillarin (U3 SKELP PROCESSOR) Negative Negative MDA-5 (P140)(CADM-140) <20 Units <20 NXP-2 (P140) <20 Units <20 TIF1 GAMMA (P155/140) <20 Units <20 Anti-PM/Scl-100 Ab <20 Units <20 U2 snRNP Negative Negative Anti-U1-SKELP PROCESSOR Ab <20 Units <20 Ku Negative Negative [...] Test Performed by: [facility] 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 09/07/2019 M70.51 Other bursitis of knee, right knee Sameer Duckworth M.D. 09/07/2019 L40.50 Arthropathic psoriasis, unspecified Sameer Duckworth M.D. 09/07/2019 Z79.899 Other custodial (current) drug therapy Sameer Duckworth M.D. 08/14/2019 R22.32 Localized swelling, mass and lump, left upper Jaciel Stevenson MD limb 08/14/2019 M67.432 Ganglion, left wrist Jaciel Stevenson MD 08/14/2019 Z47.89 Encounter for other orthopedic aftercare Jaciel Stevenson MD 08/13/2019 L40.50 Arthropathic psoriasis, unspecified Sameer Duckworth M.D. 08/13/2019 M70.51 Other bursitis of knee, right knee Sameer Duckworth M.D. 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 08/13/2019 Z79.899 Other custodial (current) drug therapy Sameer Duckworth M.D. 08/02/2019 R22.32 Localized swelling, mass and lump, left upper BEE Alas limb 08/02/2019 M67.432 Ganglion, left wrist Stuart Jaxon PA 08/02/2019 R22.32 Localized swelling, mass and lump, left upper Jaciel Stevenson MD limb 08/02/2019 M67.432 Ganglion, left wrist Jaciel Stevenson MD 07/13/2019 L40.50 Arthropathic psoriasis, unspecified Sameer Duckworth M.D. 07/13/2019 M70.51 Other bursitis of knee, right knee Sameer Duckworth M.D. 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 07/13/2019 Z79.899 Other custodial (current) drug therapy Sameer Duckworth M.D. 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 06/20/2019 Z79.899 Other custodial (current) drug therapy Sameer Duckworth M.D. 06/20/2019 R06.00 Dyspnea, unspecified Sameer Duckworth M.D. 06/20/2019 G47.61 Periodic limb movement disorder Sameer Duckworth M.D. 06/20/2019 M67.449 Ganglion, unspecified hand Sameer Duckworth M.D. 06/20/2019 L40.50 Arthropathic psoriasis, unspecified Sameer Duckworth M.D. Plan of Treatment Future Appointment(s):12/10/2019 11:00 am - Sameer Duckworth M.D. at [facility]09/07/2019 - Sameer Duckworth M.D.M33.13 Other dermatomyositis without myopathyFollow up:Follow up in 2 or 3 months or sooner if [id number] Other bursitis of knee, right kneeNew Xrays:MRI Knee Right W/O, Ordered: L40.50 Arthropathic psoriasis, [id number] Other custodial (current) drug therapy Functional Status Description No Information Available Mental Status Description No Information Available Referrals Refer to Dr Reason for Referral Status Appt Date Isa Bunch M.D. Please consider ganglion cyst removal Scheduled [address] [place] [address] [phone]
[2019-10-09 11:11] VITALS: BP 141/80
--- NOTE | 2019-10-09 11:30 | UC ---
Respiratory Complaint HPI - HPI Summary HPI Summary: cough x 10 days cough is productive with yellow sputum worse with deep breathing , better with rest and fluid, + fever, chills, nasal congestion no sob , was seen by her pcp 7 days ago, was place on Doxy with no improvement - History of Current Complaint Chief Complaint: UCGeneralIllness Stated Complaint: COUGH, CHEST TIGHTNESS Time Seen by Provider: 10/09/19 11:16 Hx Obtained From: Patient Onset/Duration: Sudden Onset, Lasting Days - 10, Still Present Timing: Constant Severity Initially: Moderate Severity Currently: Moderate Pain Intensity: 0 Character: Cough: Productive Aggravating Factors: Exertion, Deep Breaths Alleviating Factors: Nothing Associated Signs And Symptoms: Positive: Fever, Chills, URI, Nasal Congestion. Negative: Dyspnea, Wheezing - Allergies/Home Medications Allergies/Adverse Reactions: Allergies Allergy/AdvReac Type Severity Reaction Status Date / Time black pepper Allergy edema Verified 10/09/19 11:05 after testing seasonal Allergy Congestion Uncoded 10/09/19 11:05 PMH/Surg Hx/FS Hx/Imm Hx Endocrine History: Thyroid Disease Cardiovascular History: Hypertension - Surgical History Surgical History: Yes Surgery Procedure, Year, and Place: Cholecystectomy 2005 [facility] [place]. Breast reduction Bilateral 1998 [place]. Partial Hysterectomy 1979 [place]. lumbar [place]ctomy, [place], [facility] [place] metal placed per pt. LEFT TOTAL knee replacement, [place], [facility] [place]. LEFT WRIST GANGLION CYST REMOVAL - Family History Known Family History: Positive: Hypertension Negative: Diabetes Family History: CVA - Social History Alcohol Use: None Substance Use Type: None Smoking Status (MU): Never Smoked Tobacco Have You Smoked in the Last Year: No - Immunization History Most Recent Influenza Vaccination: 2016 Most Recent Tetanus Shot: unknown Most Recent Pneumonia Vaccination: in recent past Review of Systems All Other Systems Reviewed And Are Negative: Yes Constitutional: Positive: Fever, Chills, Fatigue Skin: Positive: Negative Eyes: Positive: Negative ENT: Positive: Nasal Discharge Respiratory: Positive: Cough. Negative: Shortness Of Breath Is Patient Immunocompromised?: No Physical Exam Triage Information Reviewed: Yes Appearance: Well-Appearing, No Pain Distress, Well-Nourished Vital Signs: Initial Vital Signs Temp 97.6 F 10/09/19 11:07 Pulse 78 10/09/19 11:07 Resp 20 10/09/19 11:07 BP 141/80 10/09/19 11:07 Pulse Ox 100 12/24/19 11:07 Vital Signs Reviewed: Yes Eye Exam: Normal Eyes: Positive: Conjunctiva Clear ENT: Positive: Normal ENT inspection, Hearing grossly normal, Pharynx normal, Nasal congestion, TMs normal Neck: Positive: Supple, Nontender, No Lymphadenopathy Respiratory: Positive: Chest non-tender, Lungs clear, Normal breath sounds Cardiovascular Exam: Normal Cardiovascular: Positive: RRR Skin Exam: Normal Respiratory Course/Dx - Differential Dx/Diagnosis Provider Diagnosis: Acute bronchitis Discharge ED - Sign-Out/Discharge Documenting (check all that apply): Patient Departure All imaging exams completed and their final reports reviewed: No Studies - Discharge Plan Condition: Stable Disposition: HOME Prescriptions: Codeine Phosphate/Guaifenesin [Guaifen-Codeine 100-10 mg/5 ml] 10 ml PO Q8H PRN #120 ml MDD 30 ml PRN Reason: Cough predniSONE [Prednisone 20 MG TAB] 20 mg PO BID #10 tablet Patient Education Materials: Acute Bronchitis (ED) Referrals: Tiffanie Godinez MD [Primary Care Provider] - 7 Days - Billing Disposition and Condition Condition: STABLE Disposition: Home
== END 2019-10-09 11:31 | disposition home or self-care (01) ==
LOC: UCCORT 10:57
DX: J20.9 Acute bronchitis, unspecified (principal); J34.89 Other specified disorders of nose and nasal sinuses; I10 Essential (primary) hypertension; Z91.018 Allergy to other foods; Z91.09 Other allergy status, other than to drugs and biological substances
CPT/HCPCS: 99212; G0463

== ENCOUNTER 2019-11-15 15:00 | Observation (INO) ==
[2020-04-01] MEDS ORDERED: Lactated Ringers 1000 ml BAG 1,000 ML IV SCH ×2 (06:00→14:00)
[2020-04-01] MEDS ORDERED: Bupivacaine 0.5% SDV PF 30ML VIAL ONE (08:17)
[2020-04-01] MEDS ORDERED: ceFAZolin 2 GM PREMIX in ORs 2 GM/50 ML BAG ONE (08:58)
[2020-04-01] MEDS ORDERED: fentaNYL 100 mcg/2 ml 50 MCG/ML VIAL ONE (09:09)
[2020-04-01] MEDS ORDERED: Naloxone 0.4 mg VIAL 0.4 mg/ml 1 ml VIAL IV PRN (10:40)
[2020-04-01] MEDS ORDERED: Ondansetron 4 mg VIAL 2 MG/ML 2 ml VIAL ONE (11:01)
[2020-04-01] MEDS ORDERED: Lidocaine 2% PF 5 ML VIAL ONE (11:01)
[2020-04-01] MEDS ORDERED: Dexamethasone IV 4 MG/ML VIAL 1 ml VIAL ONE (11:01)
[2020-04-01] MEDS ORDERED: Ondansetron 4 mg VIAL 2 MG/ML 2 ml VIAL IV PRN (13:18)
[2020-04-01] MEDS ORDERED: diPHENhydraMINE 25 mg TAB PO PRN (13:18)
[2020-04-01] MEDS ORDERED: Ondansetron ODT 4 mg TAB 4 MG TAB PO PRN (13:18)
[2020-04-01] MEDS ORDERED: Lactulose 30 ml UDC PO PRN (13:18)
[2020-04-01] MEDS ORDERED: diPHENhydraMINE IV 50 MG/ML 1 ml VIAL (BENADRYL) IV PRN (13:18)
[2020-04-01] MEDS ORDERED: Magnesium Hydroxide LIQ 30 ML UDC PO PRN (13:18)
[2020-04-01] MEDS ORDERED: Morphine 2 MG/ML SYRINGE IV PRN (13:18)
[2020-04-01] MEDS: oxyCODONE/Acetamin 5/325 mg TAB PO PRN ×2 (15:46→20:42)
[2020-04-01] MEDS: ceFAZolin 1 GM ADVAN(*) 1 GM in NS 0.9% 50 ML 50 ML IVPB SCH (17:57)
[2020-04-01] MEDS ORDERED: MAGNESIUM OXIDE 500 MG PO SCH (18:00)
[2020-04-01] MEDS: Magnesium Hydroxide LIQ 30 ML UDC PO SCH (20:43)
[2020-04-02] MEDS: ceFAZolin 1 GM ADVAN(*) 1 GM in NS 0.9% 50 ML 50 ML IVPB SCH ×2 (02:02→09:47)
[2020-04-02] MEDS: oxyCODONE/Acetamin 5/325 mg TAB PO PRN ×3 (02:05→12:17)
[2020-04-02 05:49] LABS: Hematocrit 36 % (35-47); Hemoglobin 12.2 g/dL (12.0-16.0); Mean Platelet Volume 7.6 fL (7.4-10.4); Platelet Count 239 10^3/uL (150-450)
[2020-04-02 06:09] LABS: BUN/Creatinine Ratio 17.7 (8-20); Calcium 8.9 mg/dL (8.6-10.3); EGFR African American 87.6 (>60); EGFR Non-African American 72.4 (>60); Potassium 4.1 mmol/L (3.5-5.0)
[2020-04-02] MEDS: Magnesium Hydroxide LIQ 30 ML UDC PO SCH (08:17)
[2020-04-02] MEDS ORDERED: Vitamin THERAPEUTIC TAB PO SCH (09:00)
[2020-04-02 12:02] VITALS: BP 140/74
== END 2020-04-02 14:05 | disposition home or self-care (01) ==
LOC: INTOOBSV 04-01 08:24 → AA 04-01 08:24 → SSU 04-01 14:07
PROVIDERS: ADMIT Orthopaedic Surgery Adult Reconstructive Orthopaedic Surgery; ATTEND Orthopaedic Surgery Adult Reconstructive Orthopaedic Surgery